=== PATIENT | male | born 1950 | race Caucasian/White ===

== ENCOUNTER → 2017-01-14 | Outpatient (CLI) | payer BC ==
[~2017-01-14] MED LIST: ASPI81TA28 PO; ATOR-26 PO; BACL1TAB PO; BUPR-79 PO; CHOL1000 PO; CYAN500T PO; DTR/5 PO; GLUC10007 PO; MULTCAP7 PO; NTRSL3 UT; PRT/20 PO; RANO500T PO; TYLOTC500 PO
[2017-01-14 17:12] LABS: ALT/SGPT 40 U/L (12-78); BLOOD UREA NITROGEN 19 mg/dl (7-18); BUN/CREATININE RATIO 19.9 (10-20); CALCIUM 9.1 mg/dl (8.5-10.1); CARBON DIOXIDE 27 mmol/L (21-32); CHLORIDE 106 mmol/L (98-107); CHOLESTEROL 118 mg/dl (0-200); CREATININE 0.98 mg/dl (0.60-1.40); GLUCOSE 98 mg/dl (70-99); POTASSIUM 4.4 mmol/L (3.5-5.1); SODIUM 144 mmol/L (136-145)
[2017-01-14 17:23] LABS: ALB/GLOB RATIO 1.3 (0.9-2); ALKALINE PHOSPHATASE 70 U/L (45-117); AST/SGOT 20 U/L (15-37); CHOLESTEROL/HDL RATIO 2.4; HDL CHOLESTEROL 49 mg/dl; LDL CHOLESTEROL CALCULATED 55 mg/dl; TRIGLYCERIDES 72 mg/dl (0-150); VERY LOW DENSITY LIPOPROT CALC 14 mg/dl
== END | disposition home or self-care (01) ==
LOC: C.LABBC 12:17
PROVIDERS: ATTEND Physician Assistant Medical
DX: Z00.00 Encounter for general adult medical examination without abnormal findings (principal); E78.5 Hyperlipidemia, unspecified; I25.10 Atherosclerotic heart disease of native coronary artery without angina pectoris; Z11.59 Encounter for screening for other viral diseases

== ENCOUNTER 2017-04-02 15:41 | Observation (INO) | payer BC ==
[~2017-04-02] VITALS: Ht 167.6 cm; Wt 62.6 kg
[2017-04-02 16:14] LABS: BASO % 0.4 %; BASO ABS # 0.03 K/uL (0-0.2); EOS % 1.9 %; EOS ABS # 0.13 K/uL (0-0.5); HEMATOCRIT 41.2 % (42-52); HEMOGLOBIN 14.2 g/dL (14.0-18.0); IG# 0.05 K/uL (0.00-0.02); LYMPH % 27.8 %; LYMPH ABS # 1.91 K/uL (1.2-3.4); MEAN CELL VOLUME 93.8 fL (80-100); MEAN CORPUSCULAR HEMOGLOBIN 32.3 pg (25-34); MEAN CORPUSCULAR HGB CONC 34.5 g/dl (32-36); MONO % 8.1 %; MONO ABS # 0.56 K/uL (0.11-0.59); NEUT % 61.1 %; PLATELET COUNT 216 K/uL (130-400); RED CELL DISTRIBUTION WIDTH CV 12.3 % (11.5-14.5); WHITE BLOOD COUNT 6.88 K/uL (4.8-10.8)
--- NOTE | 2017-04-02 16:17 | EMERGENCY ROOM VISIT NOTE ---
History First contact with patient: 15:57 Chief Complaint: CHEST PAIN Stated Complaint: CHEST PAIN History of Present Illness The patient is a 66 year old male who presents to the Emergency Room with complaints of central chest, burning chest pain which started around 2pm. He states his symptoms are similar to previous episodes in 2007 when he had an [place]. He took 2 nitro and did not experience significant relief. No associated SOB, nausea or diaphoresis, but does have some dizziness.. No radiation to arm, neck , back. No abdominal pain. Admits to poor diet - lots of junk food. Denies history of acid reflux. Called PCP because he was concerned that he has been requiring more nitro in the recent past, with increased frequency of chest pain. He otherwise denies fevers/chills, headaches, CP, palpitations, dyspnea, abdominal pain, lower extremity swelling or rashes. He is tolerating diet without nausea or vomiting, ambulating without exacerbating symptoms - no change in exercise tolerance, no orthopnea or PND. He is voiding and stooling appropriately. Review of Systems See HPI for pertinent positives and negatives. A total of ten systems were reviewed and were otherwise negative. Past Medical/Surgical History Medical Problems: (1) Anxiety State Nos (2) Cerebral Palsy Nos (3) Cervicalgia (4) Chest pain (5) Hearing Loss Nos (6) Hyperlipidemia Nec/Nos (7) Hypertension Nos (8) Old Myocardial Infarct (9) Postlaminect Synd-Cerv Surgical Problems: (1) Percutaneous Translum Coron Angioplasty Status Social History Smoking Status: Current Every Day Smoker Current/Historical Medications Scheduled Acetaminophen (Tylenol), 500 MG PO HS Aspirin (Aspirin Ec), 81 MG PO QAM Atorvastatin (Lipitor), 80 MG PO HS Baclofen (Lioresal), 10 MG PO HS Cholecalciferol (Vitamin D3), 1,000 UNITS PO QAM Coenzyme Q10 (Ubidecarenone) (Co Q10), 200 MG PO QAM Cyanocobalamin (Vitamin B-12), 1,000 MCG PO QAM Multiple Vitamins W/ Minerals (Vision Formula/Lutein), 1 TAB PO QAM Kpqxmygh-Nepttuavt-Oh Otic (Cortisporin Otic), 3 DROPS OTR QID Nutritional Supplements (Glucosamine Complex), 1 TAB PO QAM [place]-3 Fatty Acids (Fish Oil 1200 mg), 1,200 MG PO QAM Pantoprazole (Pantoprazole Sodium), 40 MG PO DAILYBB Ranolazine (Ranexa), 500 MG PO BID Scheduled PRN Calcium Carbonate (Tums), 1,000 MG PO QID PRN for Heartburn Ibuprofen (Advil), 200 MG PO DIRECTED PRN for Pain or Fever Ibuprofen-Diphenhydramine Citr (Motrin Pm), 1 DOSE PO HS PRN for Sleep Nitroglycerin (Nitrostat), 1 TAB SL DIRECTED PRN for Chest Pain Oxybutynin Chloride (Ditropan), 5 MG PO DAILY PRN for UNDECIDED Sildenafil Citrate (Viagra), 50 MG PO PRN PRN for SEXUAL ACTIVITY Physical Exam Vital Signs Date Time Temp Pulse Resp B/P (MAP) Pulse Ox O2 Delivery O2 Flow Rate FiO2 04/02/17 21:04 44 12 161/70 95 Room Air 04/02/17 21:02 46 04/02/17 19:30 49 15 137/76 96 Room Air 04/02/17 17:46 42 12 150/56 96 Room Air 04/02/17 17:21 47 20 139/76 95 Room Air 04/02/17 16:55 42 04/02/17 16:06 97 Room Air 04/02/17 16:06 36.6 53 20 131/57 97 Room Air 04/02/17 16:06 97 Room Air Physical Exam GENERAL: alert, well appearing, thin, sitting in bed, no acute distress, non- toxic HEAD: Normocephalic, atraumatic. EYES: PERRL, EOMI, normal sclera and conjunctiva OROPHARYNX: No exudate, no erythema. Lips, buccal mucosa, and tongue normal and mucous membranes are dry NECK: Supple, no nuchal rigidity, no adenopathy, non-tender LUNGS: Clear to auscultation. Normal chest wall mechanics, good air entry. No crepitations, crackles, or wheezes HEART: RRR, S1 and S2 normal, no murmurs appreciated CHEST: No reproducible tenderness. ABDOMEN: Soft, non-tender, normo-active bowel sounds, no masses, no rebound or guarding. BACK: Back is symmetrical on inspection, no deformities, no midline tenderness, no CVA tenderness. SKIN: Warm, pink, dry. No erythema, rashes, or bruising. EXTREMITIES: Grossly normal. Moving all 4 limbs. No pitting edema. Calves non tender. NEURO: Alert, Ox3. No focal deficits. Patient is deaf and communicates via [place] sign language PSYCH: Mood and affect appropriate. Medical Decision & Procedures ER Provider Diagnostic Interpretation: CHEST ONE VIEW PORTABLE HISTORY: Atypical chest pain COMPARISON: Chest 10/23/2015. FINDINGS: The lungs are clear. The heart is normal in size. No pleural effusions. No pneumothorax. Partially visualized cervical spinal fusion hardware is again noted. IMPRESSION: No acute process. Laboratory Results Test 04/02/17 16:03 Immature Granulocyte % (Auto) 0.7 % White Blood Count 6.88 K/uL (4.8-10.8) Red Blood Count 4.39 M/uL (4.7-6.1) Hemoglobin 14.2 g/dL (14.0-18.0) Hematocrit 41.2 % (42-52) Mean Corpuscular Volume 93.8 fL (80-100) Mean Corpuscular Hemoglobin 32.3 pg (25-34) Mean Corpuscular Hemoglobin Concent 34.5 g/dl (32-36) Platelet Count 216 K/uL (130-400) Mean Platelet Volume 10.0 fL (7.4-10.4) Neutrophils (%) (Auto) 61.1 % Lymphocytes (%) (Auto) 27.8 % Monocytes (%) (Auto) 8.1 % Eosinophils (%) (Auto) 1.9 % Basophils (%) (Auto) 0.4 % Neutrophils # (Auto) 4.20 K/uL (1.4-6.5) Lymphocytes # (Auto) 1.91 K/uL (1.2-3.4) Monocytes # (Auto) 0.56 K/uL (0.11-0.59) Eosinophils # (Auto) 0.13 K/uL (0-0.5) Basophils # (Auto) 0.03 K/uL (0-0.2) Immature Granulocyte # (Auto) 0.05 K/uL (0.00-0.02) Prothrombin Time 10.2 SECONDS (9.0-12.0) Prothromb Time International Ratio 1.0 (0.9-1.1) Procalcitonin < 0.05 ng/ml (0-0.5) Medications Administered Medications (Trade) Dose Ordered Sig/Luis Route Start Time Stop Time Status Last Admin Dose Admin Sodium Chloride 500 ml @ 125 mls/hr Q4H IV 04/02/17 16:30 04/02/17 22:48 DC 04/02/17 21:04 125 MLS/HR Famotidine 20 mg/ Dextrose 102 ml @ 200 mls/hr NOW STAT IV 04/02/17 17:39 04/02/17 18:09 DC 04/02/17 17:49 200 MLS/HR Calcium Carbonate (Tums Chew Tab) 1,000 mg NOW STAT PO 04/02/17 17:54 04/02/17 17:56 DC 04/02/17 18:13 1,000 MG ECG Per My Interpretation Indication: chest pain Rate (beats per minute): 44 Rhythm: sinus bradycardia Findings: no acute ischemic change, no ectopy Medical Decision Prior records/ancillary studies reviewed. Triage Nursing notes reviewed. Additional history obtained from patient. The patient's history was concerning for chest pain. Differential diagnosis: Etiologies such as cardiac ischemia, aortic dissection, pulmonary embolism, pneumonia, pneumothorax, musculoskeletal, infections, pericarditis, myocarditis , esophageal rupture, gastrointestinal, as well as others were entertained. Physical examination: As above. ER treatment provided: IVF NSS, IV famotidine, PO calcium carbonate On reassessment the patient felt ongoing chest burning. Diagnostic interpretation by me: The electrocardiogram was negative for pathologic change. The labs revealed CBC and BMP WNL, negative troponin Imaging studies: chest x-ray as above Initially, the patient was deemed safe to go home, and was keen for discharge. However, whilst in the emergency department, he began complaining of recurring chest burning. Repeat EKG showed unchanged morphology. Symptoms did not improve with IV famotidine and Tums. Given the patient's Heart Score of 4, indicating a 12-16.6% risk of major cardiac event, it was thought pertinent have the patient evaluated further. Consultation: A consultation was placed with the hospitalist. The case was discussed and diagnostics were reviewed. By the evaluation outlined above emergent etiologies such as acute cardiac ischemia, aortic dissection, pulmonary embolism, pneumonia, pneumothorax, infections, pericarditis, myocarditis, gastrointestinal, as well as others were deemed relatively unlikely. The patient and his sister were informed about the findings as listed above. All questions were answered and they were pleased with the treatment. The patient was evaluated for further management. Blood Pressure Screening Patient's blood pressure: Elevated blood pressure Impression Primary Impression: Chest pain Departure Information Dispostion Being Evaluated By Hospitalist Condition GOOD Prescriptions Pantoprazole (Pantoprazole Sodium) 40 Mg Tab 40 MG PO DAILYBB for 30 Days, TAB Prov: Beth Thomas M.D. 04/03/17 Calcium Carbonate (Tums) 500 Mg Chew 1000 MG PO QID Y for Heartburn for 30 Days Prov: Beth Thomas M.D. 04/03/17 Referrals Zaheer Claros M.D. (PCP) Patient Instructions My [facility] Resident Tracking Resident Involvement: Resident Care Provided Care Provided: Adult ED
[2017-04-02 16:33] LABS: BLOOD UREA NITROGEN 14 mg/dl (7-18); CALCIUM 8.8 mg/dl (8.5-10.1); CARBON DIOXIDE 26 mmol/L (21-32); CREATININE 0.88 mg/dl (0.60-1.40); GLUCOSE 101 mg/dl (70-99); POTASSIUM 4.1 mmol/L (3.5-5.1); SODIUM 140 mmol/L (136-145)
[2017-04-02] MEDS: SODIUM CHLORIDE 0.9% 500ML 500 ML IV SCH ×2 (16:39→21:04)
--- NOTE | 2017-04-02 17:02 | DIAGNOSTIC IMAGING REPORT ---
CHEST ONE VIEW PORTABLE HISTORY: Atypical chest pain COMPARISON: Chest 10/23/2015. FINDINGS: The lungs are clear. The heart is normal in size. No pleural effusions. No pneumothorax. Partially visualized cervical spinal fusion hardware is again noted. IMPRESSION: No acute process. Electronically signed by: Sanjay Frye M.D. 04/02/2017 5:01 PM Dictated Date/Time: 04/02/2017 4:58 PM
--- NOTE | 2017-04-02 17:06 | EMERGENCY ROOM VISIT NOTE ---
ED Visit Note First contact with patient: 15:57 Resident Physician Supervision Note: I was present with Dr. Broussard during the history and exam. I discussed the case with the resident and agree with the findings and plan as documented in the note. Documented By: Chente Mack
[2017-04-02] MEDS ORDERED: FAMOTIDINE IV INJ 20 MG in DEXTROSE 5% 100ML 100 ML IV STA (17:39)
[2017-04-02] MEDS ORDERED: MULT-839 PO (17:49)
[2017-04-02] MEDS ORDERED: NTRGSL4 SL (17:49)
[2017-04-02] MEDS ORDERED: VGR50 PO (17:49)
[2017-04-02] MEDS ORDERED: COEN1CAP10 PO (17:49)
[2017-04-02] MEDS ORDERED: IBUP-1050 PO (17:49)
[2017-04-02] MEDS ORDERED: OMEG5CAP PO (17:49)
[2017-04-02] MEDS ORDERED: METO50TA8 PO (17:49)
[2017-04-02] MEDS ORDERED: NUTRTAB48 PO (17:49)
[2017-04-02] MEDS ORDERED: [UNRECOGNIZED DRUG - CODE] PO (17:49)
[2017-04-02] MEDS ORDERED: NEOM1SUS21 OTR (17:49)
[2017-04-02] MEDS ORDERED: CALCIUM CARBONATE 500 MG CHEWABLE PO STA (17:54)
[2017-04-02] MEDS ORDERED: POLYETHYLENE (MIRALAX) 17 GM PACK PO PRN (21:15)
[2017-04-02] MEDS ORDERED: OXYBUTYNIN CHLORIDE 5 MG TAB PO PRN (21:15)
[2017-04-02] MEDS ORDERED: ACETAMINOPHEN 325 MG TAB PO PRN (21:15)
[2017-04-02] MEDS ORDERED: MAGNESIUM HYDROXIDE SUSP 30 ML UDC PO PRN (21:15)
[2017-04-02] MEDS ORDERED: IBUPROFEN 200 MG TAB PO PRN (21:15)
[2017-04-02] MEDS ORDERED: GI COCKTAIL PO PRN (21:15)
[2017-04-02] MEDS ORDERED: ALUMINUM/MAGNESIUM/SIMETH (MAALOX MAX) 30 ML UDC PO PRN (21:15)
[2017-04-02] MEDS ORDERED: ONDANSETRON INJ 2 MG/ML 2 ML VIAL IV PRN (21:15)
[2017-04-02] MEDS ORDERED: NITROGLYCERIN 0.4 MG SL PER TAB CHARGE SL PRN (21:15)
[2017-04-02] MEDS ORDERED: PANTOprazole SOD 40 MG TAB PO STA (21:21)
[2017-04-02] MEDS ORDERED: GI COCKTAIL PO STA (21:30)
[2017-04-02] MEDS ORDERED: CALCIUM CARBONATE 500 MG CHEWABLE PO PRN (21:30)
--- NOTE | 2017-04-02 21:46 | History and Physical ---
History & Physical Date & Time of Service: Apr 02, 2017 at 21:24 Chief Complaint: Chest Pain Primary Care Physician: Zaheer Claros M.D. History of Present Illness Source: patient, family (sister translates) The patient is a pleasant 66 year old male with a history of CAD, AL, HTN, GERD and chronic neck pain, who presents with with chest pain and dizziness. The patient is deaf and requires seafood specialist or sister to provide sign language to assist with communication. The patient notes that this afternoon around 1500 he was walking in his house and felt a pressure/burning in his chest. The pain did not radiate to his neck , arms, or back. The pain patient took 2 Nitro tabs over a period of 45 minutes and the pain dissipated. The patient also had associated lightheadedness. He call his PCP who called an ambulance to his house. He denies shortness of breath, cough, or wheezing. He has not had orthopnea or leg swelling. He states that it is usual for him to get a similar chest discomfort approximately twice per month and he usually takes Nitro for this. However, on this occasion, the symptoms were associated with lightheadedness which was concerning to him. 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 Since then he follows with the [facility] cardiology group. Currently, states only minimal chest discomfort centrally, markedly improved from arrival in the ED. Past Medical/Surgical History Medical Problems: (1) Anxiety State Nos Status: Chronic (2) Cerebral Palsy Nos Status: Chronic (3) Cervicalgia Status: Chronic (4) Hearing Loss Nos Status: Chronic (5) Hyperlipidemia Nec/Nos Status: Chronic (6) Hypertension Nos Status: Chronic (7) Old Myocardial Infarct Status: Chronic (8) Postlaminect Synd-Cerv Status: Chronic Surgical Problems: (1) Percutaneous Translum Coron Angioplasty Status Status: Resolved Family History CAD HTN Leukemia Social History Smoking Status: Current Every Day Smoker (10 cigarettes) Smokeless Tobacco Use: No Alcohol Use: none Drug Use: none Marital Status: single Housing status: lives alone Immunizations History of Influenza Vaccine: No History of Tetanus Vaccine?: Yes History of Pneumococcal: No History of Hepatitis B Vaccine: No Multi-Drug Resistant Organisms History of MDRO: No Allergies Coded Allergies: No Known Allergies (Verified , 04/02/17) Home Medications Scheduled Acetaminophen (Tylenol), 500 MG PO HS Aspirin (Aspirin Ec), 81 MG PO QAM Atorvastatin (Lipitor), 80 MG PO HS Baclofen (Lioresal), 10 MG PO HS Cholecalciferol (Vitamin D3), 1,000 UNITS PO QAM Coenzyme Q10 (Ubidecarenone) (Co Q10), 200 MG PO QAM Cyanocobalamin (Vitamin B-12), 1,000 MCG PO QAM Metoprolol Succ (Toprol Xl) (Toprol-Xl), 25 MG PO QAM Multiple Vitamins W/ Minerals (Vision Formula/Lutein), 1 TAB PO QAM Guiqhrym-Gdiywziwq-Ud Otic (Cortisporin Otic), 3 DROPS OTR QID Nutritional Supplements (Glucosamine Complex), 1 TAB PO QAM [place]-3 Fatty Acids (Fish Oil 1200 mg), 1,200 MG PO QAM Pantoprazole (Protonix), 20 MG PO DAILYBB Ranolazine (Ranexa), 500 MG PO BID Scheduled PRN Ibuprofen (Advil), 200 MG PO DIRECTED PRN for Pain or Fever Ibuprofen-Diphenhydramine Citr (Motrin Pm), 1 DOSE PO HS PRN for Sleep Nitroglycerin (Nitrostat), 1 TAB SL DIRECTED PRN for Chest Pain Oxybutynin Chloride (Ditropan), 5 MG PO DAILY PRN for UNDECIDED Sildenafil Citrate (Viagra), 50 MG PO PRN PRN for SEXUAL ACTIVITY Review of Systems A 10 point review of systems was negative unless stated above. Physical Exam Vital Signs Date Time Temp Pulse Resp B/P (MAP) Pulse Ox O2 Delivery O2 Flow Rate FiO2 04/02/17 21:04 44 12 161/70 95 Room Air 04/02/17 21:02 46 04/02/17 19:30 49 15 137/76 96 Room Air 04/02/17 17:46 42 12 150/56 96 Room Air 04/02/17 17:21 47 20 139/76 95 Room Air 04/02/17 16:55 42 04/02/17 16:06 97 Room Air 04/02/17 16:06 36.6 53 20 131/57 97 Room Air 04/02/17 16:06 97 Room Air General Appearance: WD/WN, no apparent distress Head: normocephalic, atraumatic Eyes: normal inspection, EOMI ENT: normal ENT inspection, hearing grossly normal, pharynx normal Neck: supple, no adenopathy, no JVD, + pertinent finding (posterior scar from previous C-spine surgery) Respiratory/Chest: + crackles (Crackles R base) Cardiovascular: regular rate, rhythm, no gallop, no murmur, + bradycardia Abdomen/GI: normal bowel sounds, non tender, soft Back: no CVA tenderness, no muscle spasm Extremities/Musculoskelatal: no calf tenderness, no pedal edema Neurologic/Psych: alert, normal mood/affect Skin: normal color, warm/dry, no rash Lymphatic: no adenopathy Diagnostics Laboratory Results Results Past 24 Hours Test 04/02/17 16:03 Range/Units White Blood Count 6.88 4.8-10.8 K/uL Red Blood Count 4.39 4.7-6.1 M/uL Hemoglobin 14.2 14.0-18.0 g/dL Hematocrit 41.2 42-52 % Mean Corpuscular Volume 93.8 80-100 fL Mean Corpuscular Hemoglobin 32.3 25-34 pg Mean Corpuscular Hemoglobin Concent 34.5 32-36 g/dl Platelet Count 216 130-400 K/uL Mean Platelet Volume 10.0 7.4-10.4 fL Neutrophils (%) (Auto) 61.1 % Lymphocytes (%) (Auto) 27.8 % Monocytes (%) (Auto) 8.1 % Eosinophils (%) (Auto) 1.9 % Basophils (%) (Auto) 0.4 % Neutrophils # (Auto) 4.20 1.4-6.5 K/uL Lymphocytes # (Auto) 1.91 1.2-3.4 K/uL Monocytes # (Auto) 0.56 0.11-0.59 K/uL Eosinophils # (Auto) 0.13 0-0.5 K/uL Basophils # (Auto) 0.03 0-0.2 K/uL RDW Standard Deviation 42.0 36.4-46.3 fL RDW Coefficient of Variation 12.3 11.5-14.5 % Immature Granulocyte % (Auto) 0.7 % Immature Granulocyte # (Auto) 0.05 0.00-0.02 K/uL Sodium Level 140 136-145 mmol/L Potassium Level 4.1 3.5-5.1 mmol/L Chloride Level 107 98-107 mmol/L Carbon Dioxide Level 26 21-32 mmol/L Anion Gap 7.0 3-11 mmol/L Blood Urea Nitrogen 14 7-18 mg/dl Creatinine 0.88 0.60-1.40 mg/dl Est Creatinine Clear Calc Drug Dose 76.5 ml/min Estimated GFR () 105.2 Estimated GFR (Non- 90.8 BUN/Creatinine Ratio 16.4 10-20 Random Glucose 101 70-99 mg/dl Calcium Level 8.8 8.5-10.1 mg/dl Troponin I < 0.015 0-0.045 ng/ml Diagnostic Radiology CHEST ONE VIEW PORTABLE HISTORY: Atypical chest pain COMPARISON: Chest 10/23/2015. FINDINGS: The lungs are clear. The heart is normal in size. No pleural effusions. No pneumothorax. Partially visualized cervical spinal fusion hardware is again noted. IMPRESSION: No acute process. EKG Marked sinus bradycardia Low voltage QRS Inferior infarct , age undetermined Cannot rule out Anterior infarct , age undetermined Abnormal ECG When compared with ECG of 23-OCT-2015 10:40, Premature ventricular complexes are no longer Present Nonspecific T wave abnormality, worse in Inferior leads Confirmed by ADRIEN LIRA ([id number]) on 04/02/2017 5:11:15 PM Impression Assessment and Plan 66 year old male with chest burning/pressure on background history of Right inferior wall AL with stenting. EKG in the ED was normal. Troponin initially was negative. The plan for the patient is as follows: Chest Pain on Background of known Ischemic Heart Disease Bradycardic on EKG; check qAM and with chest pain - Nitro PRN for chest pain - Serial troponin monitoring q6 hr - Telemetry monitoring - Consult cardiology - Continue ASA, Ranexa, Atorvastatin - Metoprolol held due to significant bradycardia - Given burning quality, will also consider GERD as etiology and treat according - Most recent stress echo from Nov 2015 was negative for ischemia up to 58% max predicted HR; EF 55-60. - Per most recent Cardiology outpatient note (Dalton Wolf, Feb 2017) patient has had a more recent stress test in Dec 2016 but I cannot find these in the EMR) day team to find these records. Note states that this stress echo was normal. GERD - ?Possibly confounder for chest pain? - Continue Pantoprazole daily; increased to 40 daily - GI cocktail BID added PRN Abnormal Lung Auscultation at Right Base - Consider CAP - Patient not hypoxic, febrile, SOB or coughing. No WBC - At this point, not urgent to start treatment; will start with checking pro- calcitonin; treat if positive - If negative, likely atelectasis, recommend incentive spirometry HTN - Continue Metoprolol - Bradycardia appears Chronic EKG finding - Will continue and monitor for symptoms Chronic Neck Pain - Continue Baclofen - Continue Tylenol PRN - Continue Ibuprofen PRN; monitor renal function daily; ensure good hydration status and intake with meals DVT Prophylaxis - SCD Knee, CHARLENE Hose - Lovenox 40 mg s.c. daily Code Status - Level I Full Code Disposition - Telemetry - OT and PT evaluations - Sister is Cherelle Lunsford ( ); please contact with updates and if translation required 66 y/o M Hx HTN, HPL, CAD - AL 2007. Presents with recurrent burning, central CP lasting a few hours - did not immediately respond to NTG or antacids. Pt was markedly bradycardic on arrival to the ER - An EKG did not otherwise support ischemia OE Hard of hearing AAO x 3 S1,2 R stephanie CTAB NT, ND No CCE P: Assigned to telemetry for R/O of AL We will hold his B arcenio and consult cardiology due to his HR which theoretically can be the cause of his CP - cont NTG PRN and Ranexa as prescribed - it is noted that he is chroncally bradycardic but normally rests in the low 50 rather than at 40 Cont Atorvastatin Level of Care Telemetry Resuscitation Status FULL RESUSCITATION VTE Prophylaxis VTE Risk Assessment Done? Y/N: Yes Risk Level: Moderate Given or contraindicated: Enoxaparin (Lovenox)SQ
[2017-04-02 23:00] VITALS: BP 165/80; PULSE 42; TEMP 36.6; O2SAT 97; Ht 167.6 cm; Wt 62.6 kg
[2017-04-02] MEDS ORDERED: ALUMINUM/MAGNESIUM SUSP 72 ML, LIDOCAINE HCL 2% VISCOUS SOLN 24 ML, BARCODE IDENTIFIER ... PO PRN ×2 (23:00)
[2017-04-02] MEDS ORDERED: ALUMINUM/MAGNESIUM SUSP 18 ML, LIDOCAINE HCL 2% VISCOUS SOLN 6 ML, BARCODE IDENTIFIER 1 EA PO ONE ×2 (23:00)
[2017-04-03 03:21] LABS: HEMATOCRIT 39.3 % (42-52); HEMOGLOBIN 13.8 g/dL (14.0-18.0); MEAN CELL VOLUME 93.6 fL (80-100); MEAN CORPUSCULAR HEMOGLOBIN 32.9 pg (25-34); MEAN CORPUSCULAR HGB CONC 35.1 g/dl (32-36); MEAN PLATELET VOLUME 10.2 fL (7.4-10.4); PLATELET COUNT 209 K/uL (130-400); RED CELL DISTRIBUTION WIDTH CV 12.2 % (11.5-14.5); RED CELL DISTRIBUTION WIDTH SD 41.4 fL (36.4-46.3); WHITE BLOOD COUNT 7.07 K/uL (4.8-10.8)
[2017-04-03 03:38] LABS: BLOOD UREA NITROGEN 13 mg/dl (7-18); CALCIUM 8.5 mg/dl (8.5-10.1); CARBON DIOXIDE 28 mmol/L (21-32); GLUCOSE 94 mg/dl (70-99); POTASSIUM 3.9 mmol/L (3.5-5.1); SODIUM 140 mmol/L (136-145)
[2017-04-03 04:05] VITALS: BP 109/40; PULSE 61; TEMP 36.5; O2SAT 95
[2017-04-03] MEDS ORDERED: PANTOprazole SOD 40 MG TAB PO SCH (06:30)
[2017-04-03 07:02] VITALS: BP 127/52; PULSE 43; TEMP 36.9; O2SAT 96
[2017-04-03] MEDS: NEOMYCIN/POLYMYX/HYDROCORT OT SUSP 10 ML BTL OTR SCH ×3 (08:39→16:59)
[2017-04-03] MEDS: ENOXAPARIN 40 MG/0.4 ML SYR SC SCH ×2 (08:43→08:47)
[2017-04-03] MEDS ORDERED: OMEGA-3 (PURIFIED FISH OIL) 1 GM CAP PO SCH (09:00)
[2017-04-03] MEDS ORDERED: FAMOTIDINE 20 MG TAB PO SCH (09:00)
[2017-04-03] MEDS ORDERED: ASPIRIN 81 MG ECTAB PO SCH (09:00)
[2017-04-03] MEDS ORDERED: NUTRITIONAL SUPPLEMENTS PO SCH (09:00)
[2017-04-03] MEDS ORDERED: CYANOCOBALAMIN 500 MCG TAB (VIT B-12) PO SCH (09:00)
[2017-04-03] MEDS ORDERED: METOPROLOL SUCC 25MG EXT REL TAB PO SCH (09:00)
[2017-04-03] MEDS ORDERED: NON-FORMULARY MEDICATION (Coenzyme Q10 (Ubidecarenone) (Co Q10) 200 MG) PO SCH (09:00)
[2017-04-03] MEDS ORDERED: CEROVITE ADV FORMULA TAB PO SCH (09:00)
[2017-04-03] MEDS ORDERED: RANOLAZINE 500 MG ER TAB PO SCH (09:00)
[2017-04-03 11:57] VITALS: BP 111/62; PULSE 43; TEMP 36.8; O2SAT 92
[2017-04-03] MEDS ORDERED: CALCIUM CARBONATE 500 MG CHEWABLE PO PRN (13:15)
[2017-04-03] MEDS ORDERED: DICLOFENAC SOD 1% GEL 100 GM TUBE EXT PRN (13:15)
[2017-04-03 15:24] VITALS: BP 151/90; PULSE 49; TEMP 36.2; O2SAT 96
[2017-04-03] MEDS ORDERED: PRT40 PO (16:42)
[2017-04-03] MEDS ORDERED: TUMS PO (16:42)
--- NOTE | 2017-04-03 16:50 | Discharge Instructions ---
Discharge Instructions Date of Service Apr 03, 2017. Admission Reason for Admission: Chest Pain Discharge Discharge Diagnosis / Problem: Chest Pain Discharge Goals Goal(s): Decrease discomfort, Improve disease control, Learn about illness, Diagnostic testing Activity Recommendations Activity Limitations: resume your previous activity . Instructions / Follow-Up Instructions / Follow-Up You were admitted for chest pain. Anginal chest pain can present as mid sternal pain that radiates to your jaw or arms, is usually associated with physical exertion, sweating. Take your nitro pill when you feel this. Looking at your blood work and assessing you here, there is no evidence of damage to your heart at this time, which may indicate that your pain may not be related to your heart but to your reflux disease. This seems to be the case especially since TUMS helped relieve some of your symptoms. I have written a prescription for TUMS only to remind you of this helpful medication, but it is available with out a prescription. We have also increased your acid reducing medication, Protonix (pantoprazole) from 20mg to 40mg daily. This should help with your reflux symptoms. Lastly, our weather clerk believes that since your blood pressure is under control and your heart rate is on the slower side of normal, that it would be best to STOP your Toprol (Metoprolol) medication -- UNTIL you are seen by [facility] at your next appointment. Please call the office to schedule an appointment with Dalton Wolf at [facility] in the next 2-3 weeks. Thank you for allowing us to participate in your care. Current Hospital Diet Patient's [facility] diet: [facility] ([facility] Healthy) Discharge Diet Recommended Diet: [facility] Diet (Heart Healthy) Pending Studies Studies pending at discharge: no Laboratory Results Lipid Panel Test 01/14/17 12:27 Range/Units Triglycerides Level 72 0-150 mg/dl Cholesterol Level 118 0-200 mg/dl HDL Cholesterol 49 mg/dl Cholesterol/HDL Ratio 2.4 LDL Cholesterol, Calculated 55 mg/dl Medical Emergencies . Who to Call and When: Medical Emergencies: If at any time you feel your situation is an emergency, please call 911 immediately. . Non-Emergent Contact Non-Emergency issues call your: Primary Care Provider, Owner/Operator Call Non-Emergent contact if: your pain is not controlled, your pain is worsening, your pain is unusual for you, your pain is concerning you . . "Provider Documentation" section prepared by Beth Thomas. . VTE Core Measure Inpt VTE Proph given/why not?: Enoxaparin (Lovenox)SQ
[2017-04-03 16:54] VITALS: BP 151/90; PULSE 49; TEMP 36.2; O2SAT 96
--- NOTE | 2017-04-03 17:58 | Discharge Summary ---
Discharge Summary Date of Service Apr 03, 2017. Discharge Summary Admission Date: Apr 02, 2017 at 21:15 Discharge Date: Apr 03, 2017 Discharge Disposition: Home Principal Diagnosis: Chest pain Problems/Secondary Diagnoses: (1) Anxiety State Nos Status: Chronic (2) Cerebral Palsy Nos Status: Chronic (3) Cervicalgia Status: Chronic (4) Hearing Loss Nos Status: Chronic (5) Hyperlipidemia Nec/Nos Status: Chronic (6) Hypertension Nos Status: Chronic (7) Old Myocardial Infarct Status: Chronic (8) Postlaminect Synd-Cerv Status: Chronic Immunizations: Have You Had Influenza Vaccine: No History of Tetanus Vaccine?: Yes History of Pneumococcal: No History of Hepatitis B Vaccine: No Consultations: Cardiology Medication Reconciliation New Medications: Calcium Carbonate (Tums) 500 Mg Chew 1000 MG PO QID PRN for Heartburn for 30 Days Pantoprazole (Pantoprazole Sodium) 40 Mg Tab 40 MG PO DAILYBB for 30 Days, TAB Continued Medications: Acetaminophen (Tylenol) 500 Mg Tab 500 MG PO HS, TAB Aspirin (Aspirin Ec) 81 Mg Tab 81 MG PO QAM Atorvastatin (Lipitor) 80 Mg Tab 80 MG PO HS, 0 Refills Baclofen (Lioresal) 10 Mg Tab 10 MG PO HS, 0 Refills Cholecalciferol (Vitamin D3) 1,000 Unit Tab 1000 UNITS PO QAM, TAB 3 Refills Coenzyme Q10 (Ubidecarenone) (Co Q10) 200 Mg Cap 200 MG PO QAM Cyanocobalamin (Vitamin B-12) 500 Mcg Tab 1000 MCG PO QAM, TAB Ibuprofen (Advil) 200 Mg Tab 200 MG PO DIRECTED PRN for Pain or Fever, TAB Ibuprofen-Diphenhydramine Citr (Motrin Pm) 1 Tab Tab 1 DOSE PO HS PRN for Sleep Multiple Vitamins W/ Minerals (Vision Formula/Lutein) 1 Tab Tab 1 TAB PO QAM Sjynkafr-Sdjpztclj-Rf Otic (Cortisporin Otic) 1 Madison Madison 3 DROPS OTR QID for 5 Days, #10 ML Nitroglycerin (Nitrostat) 0.4 Mg/1 Tab Subl 1 TAB SL DIRECTED PRN for Chest Pain 1 TAB UNDER TONGUE EVERY 5 MINUTES UP TO 3 DOSES. Nutritional Supplements (Glucosamine Complex) 1 Tab Tab 1 TAB PO QAM [place]-3 Fatty Acids (Fish Oil 1200 mg) 1 Cap Cap 1200 MG PO QAM Oxybutynin Chloride (Ditropan) 5 Mg Tab 5 MG PO DAILY PRN for UNDECIDED, TAB Ranolazine (Ranexa) 500 Mg Tab 500 MG PO BID for 30 Days, #60 TAB 3 Refills Sildenafil Citrate (Viagra) 50 Mg Tab 50 MG PO PRN PRN for SEXUAL ACTIVITY, TAB Discontinued Medications: Metoprolol Succ (Toprol Xl) (Toprol-Xl) 50 Mg Tabcr 25 MG PO QAM, #30 TAB Pantoprazole (Protonix) 20 Mg Tab 20 MG PO DAILYBB, #30 TAB Discharge Exam Spoke initially with patient with no japanese interpreter and him reading lips, but then later discussed with his sister as japanese interpreter more in depth. Pt states he is feeling better, although has persistent burning pain in his mid chest, and points to his right sided chest. It is made better with Tums. Pt is eating well , toileting well, but did not get much sleep last night. He would like to get home to his dog. Pt otherwise denies headaches, SOB, abdominal pain, diarrhea, constipation, vomiting, or lower extremity pain. ROS See HPI for pertinent positives and negatives. Physical Exam Notes: GENERAL: Awake, alert, well-appearing, in no distress. Deaf. HENT: Normocephalic, atraumatic. EYES: Normal conjunctiva. Sclera non-icteric. NECK: Supple. Old 5cm vertical scar on posterior neck post op. No JVD. RESPIRATORY: Clear to auscultation. CARDIAC: Regular rate, normal rhythm. Extremities warm and well perfused. Pulses equal. ABDOMEN: Soft, non-distended. No tenderness to palpation. No rebound or guarding. No masses. RECTAL: Deferred. MUSCULOSKELETAL: Chest examination reveals mild tenderness on right sided anterior chest. The back is symmetrical on inspection without obvious abnormality. There is no CVA tenderness to palpation. No joint edema. LOWER EXTREMITIES: Calves are equal size bilaterally and non-tender. No edema. No discoloration. SKIN: No rash or jaundice noted. Hospital Course 66 year old male with chest burning/pressure on background history of Right inferior wall [place] with stenting. Chest Pain on Background of known Ischemic Heart Disease - EKG in the ED was normal. Troponin x 4 was negative throughout stay. - Last seen in [facility] Cards office (Feb 2017) recent stress test in Dec 2016 but I cannot find these in the EMR) day team to find these records. Note states that this stress echo was normal. - Continue Nitro PRN for chest pain - Telemetry monitoring - sinus bradycardia. - Seen by Cardiology while in hospital (Dr. Orozco) recommends: pt is safe for discharge from a cardiac standpoint, can DC metoprolol since bradycardic until follow up with Dalton Wolf in [facility]iology office in 2-3 weeks. - Continue ASA, Ranexa, Atorvastatin - Metoprolol held due to significant bradycardia GERD - chest pain resolved with TUMS overnight - likely contributory - Increase Pantoprazole to 40mg daily. Add TUMS 1000mg qid PRN for heartburn. HTN - Bradycardia appears Chronic EKG finding - DC Metoprolol as above - reassess at next appointment with [facility] Cardiology in 2-3 weeks. Chronic Neck Pain - Continue Baclofen - Continue Tylenol PRN - Continue Ibuprofen PRN; monitor renal function daily; ensure good hydration status and intake with meals DVT Prophylaxis - SCD Knee, CHARLENE Hose - Lovenox 40 mg s.c. daily Code Status - Level I Full Code Thank you for allowing us to participate in Mr. Salmeron's care. Total Time Spent: Greater than 30 minutes This includes examination of the patient, discharge planning, medication reconciliation, and communication with other providers. Discharge Instructions Please refer to the electronic Patient Visit Report (Discharge Instructions) for additional information. Follow-Up Dalton COX at [facility]iology in 2-3 weeks. Pt will call office to schedule. Additional Copies To Zaheer Claros M.D.; Dalton Wolf.,P.A.
[2017-04-03] MEDS ORDERED: ACETAMINOPHEN 500 MG TAB PO SCH (21:00)
[2017-04-03] MEDS ORDERED: BACLOFEN 10 MG TAB PO SCH (21:00)
[2017-04-03] MEDS ORDERED: ATORVASTATIN 40 MG TAB PO SCH (21:00)
--- NOTE | 2017-04-04 22:50 | CARDIOLOGY CONSULTATION ---
DATE OF CONSULTATION: 04/03/2017 CONSULTATION REQUESTED BY: Rodrick Gaviria MD. REASON FOR CONSULTATION: Chest pain. HISTORY OF PRESENT ILLNESS: Mr. Salmeron is a 66-year-old man known to our cardiology practice with a history of coronary artery disease status post acute inferior wall [place] in 2007, treated with bare metal stents to his RCA, who was admitted overnight after episode of chest pain with associated dizziness. The patient was last seen in cardiology clinic back in February of 2017. At that time he was doing relatively well. Did endorse some dry mouth and for which his Ranexa was decreased from 500 mg twice daily to 500 mg once daily. With that he states he did have some improvement in his dry mouth symptoms. Has noticed more angina since making the change. On the day of admission, he was out walking when developed some episodes of left-sided chest pain similar to prior angina with some mild associated dizziness that lasted for approximately half an hour. The patient thought he was having a heart attack and as a result he presented to the ED. There his EKG was unremarkable and troponins have been negative x3. He has had no recurrent chest pain management and feels well this morning. PAST MEDICAL HISTORY: Coronary artery disease status post acute inferior [place] in 2007, treated with 2 bare metal stents to his mid RCA. Otherwise had mild to moderate nonobstructive disease in his LAD and circumflex system. Last stress test in December of 2016 was negative for ischemia. Other medical problems; dyslipidemia, sinus bradycardia, deafness, nicotine dependence and psoriasis. PAST SURGICAL HISTORY: Status post inguinal hernia repair, cervical laminectomy. FAMILY HISTORY: No family history of coronary artery disease or sudden cardiac . SOCIAL HISTORY: He is a current everyday smoker. Denies any heavy alcohol use. He is a chronic smoker. HOME MEDICATIONS: Include Toprol-XL 25 mg daily, sublingual nitroglycerin, Ranexa 500 mg daily, atorvastatin 800 mg at bedtime, Viagra p.r.n., Coenzyme Q10, fish oil, Protonix 20 mg daily, vitamin B12, baclofen, Centrum, Motrin, aspirin 81 mg, oxybutynin, glucosamine and vitamin D3. ALLERGIES: No known drug allergies. REVIEW OF SYSTEMS: Twelve point review of systems completed and otherwise negative unless stated in the HPI. PHYSICAL EXAMINATION: VITAL SIGNS: Temperature 36.2, pulse 49, blood pressure 151/90. He is satting 96% on room air. GENERAL: The patient appeared comfortable in no acute distress. HEENT: Sclerae are anicteric. Oropharynx is clear. 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 LUNGS: Clear to auscultation bilaterally. HEART: Regular rate and rhythm with no murmurs or gallops. He was bradycardic. ABDOMEN: Soft, nontender, nondistended with positive bowel sounds. EXTREMITIES: Warm with no lower extremity edema. SKIN: Shows no rashes or lesions. NEUROLOGIC: Nonfocal. LABORATORY DATA: Reviewed. Troponins were negative x3. Chest x-ray showed no acute cardiopulmonary process. EKGs reviewed. Initial EKG showed sinus bradycardia with inferior infarct, nonspecific ST abnormality, but not significantly changed from prior. IMPRESSION AND PLAN: 1. Stable angina. 2. Coronary artery disease status post prior inferior myocardial infarction with prior PCI with bare metal stents. 3. Recent negative/low- risk stress test. 4. Dyslipidemia. 5. Ongoing tobacco abuse. Mr. Salmeron was admitted with an episode of chest pain and mild associated dizziness. His episode was notable for being more severe and slightly longer than his typical anginal symptoms. There was concern for ACS on admission, but cardiac enzymes and EKG have been unremarkable. He has had no recurrent chest pain and has had no significant arrhythmias on telemetry other than longstanding sinus bradycardia. At this time, suspicion for ACS is bit low. Discussed with the patient option of potentially increasing his Ranexa back to 500 mg b.i.d. but the patient states not interested in that at this time due to dry mouth symptoms. In the setting of his bradycardia as low as 30s on admission and dizziness, feel reasonable to hold his metoprolol on discharge. I do not feel any additional cardiac testing that was needed at this time. The patient can be discharged to home with plan for outpatient cardiology followup in 2-3 weeks.
== END 2017-04-03 18:17 | disposition home or self-care (01) ==
LOC: EDBD 15:41 → C.EDA 15:42 → C.MED 21:15 → EDBEDREQ 21:21 → ENRESERV 21:35
PROVIDERS: ADMIT Student in an Organized Health Care Education/Training Program; ATTEND Hospitalist
DX: R07.9 Chest pain, unspecified (principal); F41.9 Anxiety disorder, unspecified; G80.9 Cerebral palsy, unspecified; H91.90 Unspecified hearing loss, unspecified ear; E78.5 Hyperlipidemia, unspecified; I10 Essential (primary) hypertension; I25.2 Old myocardial infarction; K21.9 Gastro-esophageal reflux disease without esophagitis; I25.10 Atherosclerotic heart disease of native coronary artery without angina pectoris; Z79.82 Long term (current) use of aspirin; Z79.899 Other long term (current) drug therapy; Z95.5 Presence of coronary angioplasty implant and graft; Z98.890 Other specified postprocedural states; F17.200 Nicotine dependence, unspecified, uncomplicated; Z82.49 Family history of ischemic heart disease and other diseases of the circulatory system; Z80.6 Family history of leukemia

== ENCOUNTER 2022-12-14 15:44 | Observation (INO) ==
--- NOTE | 2022-12-14 16:30 | ED Triage Note ---
Date of Service December 14, 2022 History of Present Illness This patient was briefly evaluated while in triage. An abbreviated physical exam was performed. This patient is a 72-year-old Male who presents to the ED for evaluation of injuries from a fall and pain in his neck. The patient had a fall this past Wednesday, and was seen in the emergency department for his pain. He was given lidocaine patches and codeine without relief of the pain. He was referred to the emergency department. When asked if the patient tried to call pain management, he stated that he did (spoke with [facility], and was referred to the emergency department). Patient denies any pain radiating into the arms or upper back region. The patient has used ice without relief. The patient reports that he ran out of his pain medicines yesterday. The patient reports that he does not receive any prescriptions other than what he received from his last ED visit. The patient rates his pain a 10 out of 10. Physical Exam CONSTITUTIONAL: Healthy and well nourished. Patient does not appear in any acute distress. CERVICAL: Generalized tenderness to palpation without obvious rigidity. MUSCULOSKELETAL: No tenderness to palpation through the trapezius muscles. INTEGUMENTARY: No rash or other significant dermatologic conditions noted. HEMATOLOGIC: No ecchymosis or petechiae. PSYCHIATRIC: Positive affect. NEUROLOGIC: Upper extremities are sensory intact. Initial orders for labs and / or imaging were placed and patient was placed in the waiting area until a bed is available. Please see further documentation for the full ED course.
[2022-12-14] MEDS ORDERED: MoRPHine SULFATE 4 MG/ML 1 ML CARP\\VIAL IV STA (19:07)
[2022-12-14] MEDS ORDERED: ONDANSETRON INJ 2 MG/ML 2 ML VIAL IV STA (19:07)
[2022-12-14] MEDS ORDERED: MoRPHine SULFATE 4 MG/ML 1 ML CARP\\VIAL IV PRN (19:07)
--- NOTE | 2022-12-14 19:19 | Emergency Department Note ---
Impression & Plan Weakness, Frequent falls, Neck pain on left side, Cerebral palsy ED Provider Note NAME: KYLE TRIANA AGE: 72 SEX: M : 1950 ARRIVES VIA: Walk-In INFORMANT: [Patient][roommate] ED PROVIDER(S): [Michelet Dennis MD] CHIEF COMPLAINT: Fall, left neck pain HISTORY OF PRESENT ILLNESS: The patient is a 72-year-old male who has some form of cerebral palsy. He falls quite frequently. He has been falling lately and after one of his falls, developed some left lateral neck pain. He has a history of neck issues, he has had a fusion to the neck. His neck pain is worse though since falling. The patient was in our ED around 6 days ago, he was given some pain medication and lidocaine patches. Things are persisting. He states that pain is a 10/10. He presents back for evaluation. There has been no cough or congestion or fever. No shortness of breath. The patient's roommate is at the bedside. She is concerned for his safety as he is falling a lot lately. I talked to the patient about this, he believes he may need rehab placement/admission as he is not safe in his home environment. Of note, the translation line was used as the patient requires the use of sign language. PMHx/PSHx/Social Hx: See Below PHYSICAL EXAM: GENERAL: Patient is in no acute distress. HEENT: No acute trauma, normocephalic atraumatic, mucous membranes moist, no nasal congestion. NECK: No stridor, no adenopathy, tender to the left lateral trapezius area and left lateral neck musculature, no obvious bony step-off. LUNGS: Clear to auscultation bilaterally, no wheeze, no rhonchi, breath sounds equal. HEART: Without murmurs gallops or rubs, regular rate and rhythm. ABDOMEN: Soft, nontender, no peritonitis. EXTREMITIES: No cyanosis, full range of motion of all the joints without pain or difficulty. NEUROLOGIC: Oriented x 3. SKIN: No jaundice, no diaphoresis. DIFFERENTIAL DIAGNOSIS: Cervical fracture, cervical strain, hematoma, intracranial bleeding, ambulatory dysfunction, anemia, electrolyte imbalance, among others. EMERGENCY DEPARTMENT PROCEDURES: MEDICAL DECISION MAKING: There is no leukocytosis or concerning anemia. There is a normal platelet count. No renal failure or significant electrolyte abnormality. No concerning liver enzyme elevation. Chest x-ray does not show mediastinal widening, pneumonia or pneumothorax. Brain CT does not show any acute bleeding or mass effect. Cervical spine CT shows his prior fusion, no fracture or bony malalignment. On exam, the patient was tender along the left lateral neck musculature and left trapezius. The patient presents with frequent falling, weakness. This is a second visit in a week. I spoke with the patient as well as his roommate. At this point, the patient was not felt safe at home. He likely requires rehab/placement. The patient was given IV morphine for pain, he received IV Zofran for nausea. I did speak with the porter sample case, the on-call hospitalist was consulted. With regard to the neck discomfort, this appears musculoskeletal, likely a result from one of his falls. Prior/Outside records/notes reviewed: Recent physical therapy note. Imaging/x-ray results per my interpretation: Chest x-ray does not show med iastinal widening, pneumonia or pneumothorax. Chronic Medical/Social conditions affecting care: Patient is deaf and requires the use of sign language. Care/Management discussed with: Case management, the on-call hospitalistDr. Montemayor. 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 Allen Hyperlipidemia Hypertension Myofascial pain Postlaminectomy syndrome Cervical Psoriasis Reactive depression Right knee pain Stomach ulcer Surgical History H/O cardiac catheterization H/O inguinal hernia repair H/O laminectomy History of bunionectomy of right great toe History of carpal tunnel surgery of left wrist History of colonoscopy with polypectomy History of heart artery stent History of tooth extraction History of wisdom tooth extraction Family History Brother Colorectal cancer Mother Hypertension Other Leukemia Denies family history of Ovarian cancer Prostate cancer Diabetes Hearing loss Coronary heart disease No family history of adverse response to anesthesia No family history of bleeding disorder Heart disease Allergies Myocardial infarction Breast cancer Cancer Stroke Asthma Social History Smoking Status: Former smoker Tobacco Type: Cigarettes Age Started Using Tobacco: 22; packs per day: 1; Cigarettes Per Day: 20; Second Hand Exposure: No; Do You Dip or Chew Tobacco: No; Hx Alcohol Use: No Hx Substance Use: No Preferred Language: [place] Citizen Communication Ability: Impaired Communication Ability Comment: needs an 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 Communication Tools: Sign Language Visual Impairment: Limited Hearing Ability: Housing Case Manager Required: Yes Beliefs That Will Affect Care: None marital status: Single Current Living Situation: Alone Current Living Situation Comment: patient lives with a friend current occupational status: retired and disabled How many Children do You have: 0 Feels Safe at Home: Yes Childhood Exposure to Second-Hand Smoke: No Diet: regular caffeine: Yes (coffee and soda ) Dental Care, Regularly: No Physical Activity Frequency: Does not Exercise Seatbelt Use: always Sunscreen Use: No Assistive Devices: Cane Allergies Allergies Allergy/AdvReac Type Severity Reaction Status Date / Time No Known Allergies Allergy Verified 12/14/22 19:32 Home Meds Home Medications Medication Instructions Recorded Confirmed acetaminophen 500 mg tablet 500 mg PO HS 12/29/17 12/14/22 (Tylenol Extra Strength) aspirin 81 mg tablet,delayed 81 mg PO QAM 12/29/17 12/14/22 release calcium carbonate 300 mg (750 mg) 300 mg PO QID PRN Acid Reflux 12/29/17 12/14/22 chewable tablet (Tums E-X) Triflex 1 cap PO QAM 03/26/20 12/14/22 cholecalciferol (vitamin D3) 50 2,000 unit PO QAM 03/26/20 12/14/22 mcg (2,000 unit) tablet (Vitamin D3) coQ10 (ubiquinol) 200 mg capsule 200 mg PO QAM 03/26/20 12/14/22 cyanocobalamin (vitamin B-12) 1,000 mcg PO QAM 03/26/20 12/14/22 1,000 mcg tablet (Vitamin B-12) vitamins A,C,M-pkib-vndlxm 4,296 1 cap PO QAM 03/26/20 12/14/22 mcg-226 mg-90 mg capsule (PreserVision AREDS) glucosamine MUx-L0-Gucuuervh 1 tab PO DAILY 07/27/22 12/14/22 yanira 1,500 mg-400 unit-100 mg tablet (Osteo Bi-Flex (5-Loxin)) ranolazine 500 mg tablet,extended 500 mg PO BID 09/04/22 12/14/22 release,12 hr alprazolam 0.5 mg tablet See Rx Instructions PO .COMPLEX 12/14/22 12/14/22 PRN PRIOR TO PROCEDURE. baclofen 10 mg tablet 10 mg PO BID 12/14/22 12/14/22 multivitamin 1 tab PO DAILY 12/14/22 12/14/22 oxybutynin chloride 5 mg tablet 5 mg PO DAILY PRN Bladder Spasms 12/14/22 12/14/22 pantoprazole 20 mg tablet,delayed 20 mg PO DAILYBB 12/14/22 12/14/22 release Previous Rx's Medication Instructions Recorded nitroglycerin 0.4 mg sublingual 0.4 mg sublingual Q5M PRN Chest 07/08/21 tablet (Nitrostat) Pain #30 tabs triamcinolone acetonide 0.1 % 1 applic topical BID PRN itching 08/08/21 topical cream #30 grams duloxetine 30 mg capsule,delayed 30 mg PO DAILY #90 caps 12/04/21 release calcipotriene-betamethasone 0.005 1 applic topical DAILY 4 weeks #60 02/23/22 %-0.064 % topical ointment grams atorvastatin 80 mg tablet 80 mg PO HS #90 tabs 06/11/22 meloxicam 7.5 mg tablet 7.5 mg PO DAILY #30 tabs 06/11/22 sildenafil 50 mg tablet (Viagra) 50 mg PO DAILY PRN Erectile 10/14/22 Dysfunction #30 tabs acetaminophen 300 mg-codeine 30 mg 1 tab PO Q8H PRN pain #6 tabs 12/08/22 tablet lidocaine 5 % topical patch 1 patch topical DAILY PRN pain #15 12/08/22 ea Results & Data (ED) Vital Signs Vital Signs - 24 hr 12/14/22 16:19 12/14/22 18:07 12/14/22 20:00 Temperature 36.8 C Temperature Source Temporal Artery Scan Pulse Rate 58 L Pulse Rate [Apical] 54 L 62 Respiratory Rate 18 20 Respiratory Effort / Characteristics Non-Labored Spontaneous Non-Labored Respiratory Depth Normal Normal Blood Pressure 172/68 H Blood Pressure [Right Arm] 169/81 H 169/79 H Blood Pressure Mean 102 Blood Pressure Mean [Right Arm] 110 109 Pulse Oximetry 97 95 95 Oxygen Delivery Method Room Air Room Air Room Air Sepsis Recent Fever Within 48 Hours No Sepsis New/Unexplained Change in Mental Status N/A Sepsis Action Taken by Nursing No Action Required Home Medications Current Medication List: was personally reviewed by me Laboratory Data Attestation: I reviewed the patient's lab results. 12/14/22 19:22 12/14/22 19:22 Lab Results 12/14/22 12/14/22 Range/Units 19:22 19:22 WBC 9.29 (4.8-10.8) K/ul RBC 4.36 L (4.70-6.10) M/uL Hgb 14.1 (14.0-18.0) g/dl Hct 39.9 L (42.0-52.0) % MCV 91.5 (80.0-100.0) fL MCH 32.3 (25.0-34.0) pg MCHC 35.3 (32.0-36.0) g/dL RDW Std Deviation 40.3 (36.4-46.3) fL RDW Coeff of Aashish 12.1 (11.5-14.5) % Plt Count 292 (130-400) K/uL MPV 9.4 (9.4-12.4) fL Immature Gran % (Auto) 0.4 % Neut % (Auto) 65.5 % Lymph % (Auto) 23.3 % [place] % (Auto) 8.5 % Eos % (Auto) 1.7 % Baso % (Auto) 0.6 % Neut # (Auto) 6.08 (1.40-6.50) K/uL Lymph # (Auto) 2.16 (1.20-3.40) K/uL [place] # (Auto) 0.79 H (0.11-0.59) K/uL Eos # (Auto) 0.16 (0.00-0.50) K/uL Baso # (Auto) 0.06 (0.00-0.20) K/uL Immature Gran # (Auto) 0.04 (0.01-0.20) K/uL Sodium 138 (136-145) mmol/L Potassium 4.2 (3.5-5.1) mmol/L Chloride 104 (98-107) mmol/L Carbon Dioxide 26 (21-32) mmol/L Anion Gap 8 (3-11) BUN 15 (6-23) mg/dl Creatinine 0.92 (0.6-1.4) mg/dl Est Cr Clr Drug Dosing Not Reportable Est GFR ( Amer) 97.3 ml/min Est GFR (Non-Af Amer) 84.0 ml/min BUN/Creatinine Ratio 16.3 (10-20) Glucose 96 (70-99(Fasting)) mg/dl Calcium 9.6 (8.6-10.3) mg/dl Total Bilirubin 0.5 (0.2-1.0) mg/dl AST 19 (13-39) U/L ALT 24 (7-52) U/L Alkaline Phosphatase 67 (34-104) U/L Total Protein 7.3 (6.0-8.3) gm/dl Albumin 4.5 (3.4-5.0) gm/dl Globulin 2.8 (2.5-4.0) gm/dl Albumin/Globulin Ratio 1.6 (0.9-2) Administered Medications Acetaminophen (Acetaminophen 325 Mg Tab) 650 mg PO Q6H HILDA Stop: 01/13/23 21:44 Last Admin: 12/14/22 23:16 Dose: 650 mg Documented By: EARLENE Atorvastatin Calcium (Atorvastatin 40 Mg Tab) 80 mg PO HS HILDA Stop: 01/13/23 21:35 Last Admin: 12/14/22 22:43 Dose: 80 mg Documented By: LEIA Baclofen (Baclofen 10 Mg Tab) 10 mg PO BID HILDA Stop: 01/13/23 21:35 Last Admin: 12/14/22 22:43 Dose: 10 mg Documented By: LEIA Miscellaneous (Remove Lidoderm Patch) 1 each N/A DAILY@2100 HILDA Stop: 01/13/23 21:35 Last Admin: 12/14/22 23:14 Dose: 1 each Documented By: TERRY Ranolazine (Ranolazine 500 Mg Er Tab) 500 mg PO BID HILDA Stop: 01/13/23 21:35 Last Admin: 12/14/22 22:42 Dose: 500 mg Documented By: LEIA Discontinued Medications Acetaminophen (Acetaminophen 500 Mg Tab) 500 mg PO HS HILDA Stop: 01/13/23 21:35 Last Admin: 12/14/22 23:11 Dose: Not Given Documented By: EARLENE Morphine Sulfate (Morphine Sulfate 4 Mg/Ml 1 Ml Carp\Vial) 4 mg IV NOW STA Stop: 12/14/22 19:08 Last Admin: 12/14/22 19:20 Dose: 4 mg Documented By: MALLORY Ondansetron HCl (Ondansetron Inj 2 Mg/Ml 2 Ml Vial) 4 mg IV NOW STA Stop: 12/14/22 19:08 Last Admin: 12/14/22 19:19 Dose: 4 mg Documented By: MALLORY Imaging Data Radiologist's Impression: Cervical Spine CT 12/14/22 19:05 Exam(s): CT C SPINE EXAM: CT Cervical Spine Without Intravenous Contrast CLINICAL HISTORY: Reason for exam: fall, pain. TECHNIQUE: Axial computed tomography images of the cervical spine without intravenous contrast. CTDI is 26 mGy and DLP is 491.25 mGy-cm. Automated exposure control was utilized for the study. A dose lowering technique was utilized adhering to the principles of ALARA. COMPARISON: No relevant prior studies available. FINDINGS: The vertebral body heights are maintained. The craniocervical junction is intact. The atlanto-dens interval is maintained. The dens is intact. Grade 2 anterolisthesis of C7 on T1, measures 6 mm. Multilevel posterior cervical fusion hardware, which extends from C3-C6). Cerclage wires are present in the posterior elements of C7 and T1. Multilevel cervical spondylosis and degenerative disc disease. Straightening of the cervical lordosis. Severe osseous demineralization. IMPRESSION: No cervical spine fracture. Posterior fusion, as described. Grade 2 anterolisthesis of C7 on T1, measures 6 mm. Electronically signed by: Carrillo Glez MD 12/14/22 20:[address] 12/14/22 19:05 Exam(s): CT HEAD Without Contrast EXAM: CT Head Without Intravenous Contrast CLINICAL HISTORY: Reason for exam: fall, pain. TECHNIQUE: Axial computed tomography images of the head/brain without intravenous contrast. CTDI is 38.64 mGy and DLP is 624.41 mGy-cm. Automated exposure control was utilized for the study. A dose lowering technique was utilized adhering to the principles of ALARA. COMPARISON: No relevant prior studies available. FINDINGS: No acute intracranial hemorrhage. No midline shift or mass effect. The territorial gooden-white matter differentiation is maintained throughout. The ventricles and sulci are commensurate with age. The visualized orbits appear grossly unremarkable. The calvarium is intact. The visualized paranasal sinuses and mastoid air cells are grossly clear. IMPRESSION: No acute intracranial hemorrhage, midline shift, or mass effect. Electronically signed by: Carrillo Glez MD 12/14/22 20:11 PM Discharge Plan Visit Data Chief Complaint: Fall Stated Complaint: FALL, BLOOD THINNERS, NECK PAIN ED Provider: Michelet Dennis Discharge Problem: Weakness, Frequent falls, Neck pain on left side, Cerebral palsy Patient Disposition: Admitted As Inpatient Condition: Fair Discharge Instructions Interventions: ED Discharge Assessment Last Done: 12/14/22 21:37
[2022-12-14 19:33] LABS: Basophils # (auto) 0.06 K/uL (0.00-0.20); Basophils % (auto) 0.6 %; Eosinophils # (auto) 0.16 K/uL (0.00-0.50); Eosinophils % (auto) 1.7 %; Hematocrit (blood only) 39.9 % (42.0-52.0); Hemoglobin 14.1 g/dl (14.0-18.0); Immature Granulocytes # (auto) 0.04 K/uL (0.01-0.20); Immature Granulocytes % (auto) 0.4 %; Lymphocytes # (auto) 2.16 K/uL (1.20-3.40); Lymphocytes % (auto) 23.3 %; Mean Corpuscular Hemoglobin 32.3 pg (25.0-34.0); Mean Corpuscular Hgb Conc 35.3 g/dL (32.0-36.0); Mean Corpuscular Volume 91.5 fL (80.0-100.0); Mean Platelet Volume 9.4 fL (9.4-12.4); Monocytes # (auto) 0.79 K/uL (0.11-0.59); Monocytes % (auto) 8.5 %; Neutrophils # (auto) 6.08 K/uL (1.40-6.50); Neutrophils % (auto) 65.5 %; Platelet Count 292 K/uL (130-400); RDW Coefficient of Variation 12.1 % (11.5-14.5); RDW Standard Deviation 40.3 fL (36.4-46.3); Red Blood Count 4.36 M/uL (4.70-6.10); White Blood Count 9.29 K/ul (4.8-10.8)
[2022-12-14 19:51] LABS: Alanine Aminotransferase 24 U/L (7-52); Albumin Globulin Ratio 1.6 (0.9-2); Albumin Level 4.5 gm/dl (3.4-5.0); Alkaline Phosphatase 67 U/L (34-104); Anion Gap 8 (3-11); Aspartate Aminotransferase 19 U/L (13-39); BUN Creatinine Ratio 16.3 (10-20); Bilirubin,Total 0.5 mg/dl (0.2-1.0); Blood Urea Nitrogen 15 mg/dl (6-23); Calcium 9.6 mg/dl (8.6-10.3); Carbon Dioxide 26 mmol/L (21-32); Chloride 104 mmol/L (98-107); Est GFR (African American) 97.3 ml/min; Globulin 2.8 gm/dl (2.5-4.0); Glucose 96 mg/dl (70-99(Fasting)); Potassium 4.2 mmol/L (3.5-5.1); Sodium 138 mmol/L (136-145); Total Protein 7.3 gm/dl (6.0-8.3)
--- NOTE | 2022-12-14 20:11 | CT Scan Report ---
Exam(s): CT HEAD Without Contrast EXAM: CT Head Without Intravenous Contrast CLINICAL HISTORY: Reason for exam: fall, pain. TECHNIQUE: Axial computed tomography images of the head/brain without intravenous contrast. CTDI is 38.64 mGy and DLP is 624.41 mGy-cm. Automated exposure control was utilized for the study. A dose lowering technique was utilized adhering to the principles of ALARA. COMPARISON: No relevant prior studies available. FINDINGS: No acute intracranial hemorrhage. No midline shift or mass effect. The territorial gooden-white matter differentiation is maintained throughout. The ventricles and sulci are commensurate with age. The visualized orbits appear grossly unremarkable. The calvarium is intact. The visualized paranasal sinuses and mastoid air cells are grossly clear. IMPRESSION: No acute intracranial hemorrhage, midline shift, or mass effect. Electronically signed by: Carrillo Glez MD 12/14/22 20:11 PM
--- NOTE | 2022-12-14 20:13 | CT Scan Report ---
Exam(s): CT C SPINE EXAM: CT Cervical Spine Without Intravenous Contrast CLINICAL HISTORY: Reason for exam: fall, pain. TECHNIQUE: Axial computed tomography images of the cervical spine without intravenous contrast. CTDI is 26 mGy and DLP is 491.25 mGy-cm. Automated exposure control was utilized for the study. A dose lowering technique was utilized adhering to the principles of ALARA. COMPARISON: No relevant prior studies available. FINDINGS: The vertebral body heights are maintained. The craniocervical junction is intact. The atlanto-dens interval is maintained. The dens is intact. Grade 2 anterolisthesis of C7 on T1, measures 6 mm. Multilevel posterior cervical fusion hardware, which extends from C3-C6). Cerclage wires are present in the posterior elements of C7 and T1. Multilevel cervical spondylosis and degenerative disc disease. Straightening of the cervical lordosis. Severe osseous demineralization. IMPRESSION: No cervical spine fracture. Posterior fusion, as described. Grade 2 anterolisthesis of C7 on T1, measures 6 mm. Electronically signed by: Carrillo Glez MD 12/14/22 20:12 PM
--- NOTE | 2022-12-14 20:44 | History & Physical Report ---
Date of Service December 14, 2022 Assessment & Plan (1) Acute neck pain: Plan: -Admit to med/surge -Currently stable with pain moderately controlled -Started to experience severe, left-sided neck/paraspinal pain after sustaining a ground level, mechanical fall 4 weeks ago at home -No new neurologic symptoms, CT of the head and CT of the cervical spine are negative for acte trauma -CT of the neck shows stable previous cervical fusion with Grade 2 anterolisthesis of C7 on T1 and Severe osseous demineralization -At this time the etiology of the patient's severe left neck patient is most likely associated with muscle spasms and chronic arthritis exacerbated by his recent fall -Patient is interested in PT/OT and home health, placed consults for PT/OT/and case management -Pain control with scheduled tylenol, lidocaine patch, heat, IV morphine for severe pain, and home baclofen -Fall precautions ordered -SQ lovenox for DVT PPX -HH diet with aspiration precautions -AM CBC, BMP, Mag (2) Anxiety disorder: Plan: -Continue prn Xanax, Duloxetine, (3) Cerebral palsy: Plan: -Fall precuations (4) History of myocardial infarction: Plan: -Continue ranolazine, aspirin and statin (5) Chronic obstructive pulmonary disease: Plan: -Stable on RA -Lungs are clear -Incentive spirometry for now (6) Deafness: Plan: -Continue to use javascript engineer with communication (7) Reactive depression: Plan: Continue Duloxetine Plan The patient was discussed with Dr. Queen at the time of the admission History of Present Illness Chief Complaint: Mechanical fall, need for placement Primary Care Provider: NO PCP Arnav is a 72 year old male with a PMH significant for Cerebral Palsy, severe deafness (Uses sign language to communicate), recurrent falls, COPD, coronary artery disease, anemia, cervical dystonia status postlaminectomy in 2004, hypertension, hyperlipidemia, anxiety and depression who presented to the [facility] ED on 12/14 for recurrent falls and left neck pain. He remained stable in the ED. Labs including CBC and CMP were unremarkable. CT of the head was read as "No acute intracranial hemorrhage, midline shift, or mass effect.". CT of the cervical spine was read as "No cervical spine fracture. Posterior fusion, as described. Grade 2 anterolisthesis of C7 on T1, measures 6 mm.". Prior to admission the patient was given 8 mg IV morphine and a lidocaine patch. At the time of the exam the patient was lying in bed in no acute distress with his friend/roommate sitting bedside. History was obtained from the use of the digital tangled yarn spool straightener as the patient uses sign language to communicate. He states that he has a previous history of cervical fusion in 2004. Since his fusion he has been doing well and without significancy neck pain. He is supposed to use a walker/can for ambulation, especially when his roommate is not home. However, he has not been using his walker as much as he should. Approximately 4 weeks ago he had a fall while ambulating due to slipping, he denies hitting his head or losing consciousness. He states that since that fall he has been having progressive, right sided neck pain. He denies headache, changes in vision, hearing, taste, and smell, new weakness or paresthesias, chest pain, SOB, abd pain, nausea, vomiting, diarrhea, dysuria, and hematuria. He denies any other pain since his fall. He feels as though he needs additional help at home when his roommate is at work. When his roommate is at home they are able to help him greatly. We discussed code status, he is a full code. Please see Dr. Queen's attestation for any changes to the treatment plan Allergies Allergy/AdvReac Type Severity Reaction Status Date / Time No Known Allergies Allergy Verified 12/14/22 19:32 Home Medications Medication Instructions Recorded Confirmed Type acetaminophen 500 mg tablet 500 mg PO HS 12/29/17 12/14/22 History (Tylenol Extra Strength) aspirin 81 mg tablet,delayed 81 mg PO QAM 12/29/17 12/14/22 History release calcium carbonate 300 mg (750 mg) 300 mg PO QID PRN Acid Reflux 12/29/17 12/14/22 History chewable tablet (Tums E-X) Triflex 1 cap PO QAM 03/26/20 12/14/22 History cholecalciferol (vitamin D3) 50 2,000 unit PO QAM 03/26/20 12/14/22 History mcg (2,000 unit) tablet (Vitamin D3) coQ10 (ubiquinol) 200 mg capsule 200 mg PO QAM 03/26/20 12/14/22 History cyanocobalamin (vitamin B-12) 1,000 mcg PO QAM 03/26/20 12/14/22 History 1,000 mcg tablet (Vitamin B-12) vitamins A,C,U-igtq-akmmxf 4,296 1 cap PO QAM 03/26/20 12/14/22 History mcg-226 mg-90 mg capsule (PreserVision AREDS) nitroglycerin 0.4 mg sublingual 0.4 mg sublingual Q5M PRN Chest 07/08/21 12/14/22 Rx tablet (Nitrostat) Pain #30 tabs triamcinolone acetonide 0.1 % 1 applic topical BID PRN itching 08/08/21 12/14/22 Rx topical cream #30 grams duloxetine 30 mg capsule,delayed 30 mg PO DAILY #90 caps 12/04/21 12/14/22 Rx release calcipotriene-betamethasone 0.005 1 applic topical DAILY 4 weeks #60 02/23/22 12/14/22 Rx %-0.064 % topical ointment grams atorvastatin 80 mg tablet 80 mg PO HS #90 tabs 06/11/22 12/14/22 Rx meloxicam 7.5 mg tablet 7.5 mg PO DAILY #30 tabs 06/11/22 12/14/22 Rx glucosamine [id number] 1 tab PO DAILY 07/27/22 12/14/22 History yanira 1,500 mg-400 unit-100 mg tablet (Osteo Bi-Flex (5-Loxin)) ranolazine 500 mg tablet,extended 500 mg PO BID 09/04/22 12/14/22 History release,12 hr sildenafil 50 mg tablet (Viagra) 50 mg PO DAILY PRN Erectile 10/14/22 12/14/22 Rx Dysfunction #30 tabs acetaminophen 300 mg-codeine 30 mg 1 tab PO Q8H PRN pain #6 tabs 12/08/22 12/14/22 Rx tablet lidocaine 5 % topical patch 1 patch topical DAILY PRN pain #15 12/08/22 12/14/22 Rx ea alprazolam 0.5 mg tablet See Rx Instructions PO .COMPLEX 12/14/22 12/14/22 History PRN PRIOR TO PROCEDURE. baclofen 10 mg tablet 10 mg PO BID 12/14/22 12/14/22 History multivitamin 1 tab PO DAILY 12/14/22 12/14/22 History oxybutynin chloride 5 mg tablet 5 mg PO DAILY PRN Bladder Spasms 12/14/22 12/14/22 History pantoprazole 20 mg tablet,delayed 20 mg PO DAILYBB 12/14/22 12/14/22 History release Past Med/Surg History Medical History Anxiety disorder Cerebral palsy Cervical dystonia Cervical radiculopathy Cervicalgia Deafness complete--pt uses sign language to communicate Depressive psychosis History of myocardial infarction 2007--had a heart cath with 2 stents placed--follows with Dr. Allen Hyperlipidemia Hypertension Myofascial pain Postlaminectomy syndrome Cervical Psoriasis Reactive depression Right knee pain Stomach ulcer Surgical History H/O cardiac catheterization H/O inguinal hernia repair H/O laminectomy History of bunionectomy of right great toe History of carpal tunnel surgery of left wrist History of colonoscopy with polypectomy History of heart artery stent History of tooth extraction History of wisdom tooth extraction Family History Brother Colorectal cancer Mother Hypertension Other Leukemia Denies family history of Ovarian cancer Prostate cancer Diabetes Hearing loss Coronary heart disease No family history of adverse response to anesthesia No family history of bleeding disorder Heart disease Allergies Myocardial infarction Breast cancer Cancer Stroke Asthma Social History Smoking Status: Former smoker Tobacco Type: Cigarettes Age Started Using Tobacco: 22; packs per day: 1; Cigarettes Per Day: 1 pack every 2 days; Second Hand Exposure: Yes (brother); Do You Dip or Chew Tobacco: No; Hx Alcohol Use: Yes Alcohol type: wine Alcohol Intake Frequency: Monthly or Less Hx Substance Use: No Preferred Language: Tristanian Communication Ability: deaf Communication Ability Comment: needs an tangled yarn spool straightener Communication Tools: Sign Language Visual Impairment: Limited Hearing Ability: School Business Administrator Required: Yes and Video Beliefs That Will Affect Care: None marital status: Single Current Living Situation: Other Current Living Situation Comment: roomate current occupational status: retired and disabled How many Children do You have: 0 Other Information That Helps Us Care for You: No Feels Safe at Home: No Is there a partner from a previous relationship who is making you feel unsafe now?: No Any Concerns about Your Family Situation: No Would You Like to Speak to Someone About Your Situation: No Safety Concerns: Feels Safe At This Time Childhood Exposure to Second-Hand Smoke: No Diet: regular caffeine: Yes (coffee and soda ) Dental Care, Regularly: No Physical Activity Frequency: Does not Exercise Seatbelt Use: always Sunscreen Use: No Assistive Devices: Glasses and Hearing Aid - Bilateral Physical Exam Physical Exam: Physical Exam: General: In no acute distress, stated age, well-nourished, good hygiene HEENT: Normocephalic, atraumatic, no scleral icterus, pupils around round, symmetrical, and reactive to light, moist mucus membranes, trachea midline, no thyromegaly Chest/Pulm: No respiratory distress, symmetrical chest expansion, clear breath sounds throughout, no tenderness to palpation over the BL chest Cardiac: RRR, no murmurs noted Abdomen: Negative for ascites and bruising, normoactive bowel sounds, soft, non-tender to palpation throughout Musculoskeletal: Patient without acute trauma to inspection or palpation of the face or head. Previous surgical scar noted over the cervical spine which appears well healed, no tenderness to palpation over the cervical spine itself, pain over the left paraspinal muscles, otherwise no tenderness to palpation of the thoracic or lumbar spine, intact and symmetrical strength in the BL upper extremities, intact and symmetrical strength in the BL LE's Extremities: Radial, dorsalis pedis, and posterior tibial pulses are intact and symmetrical, no edema noted in the BL LE's Skin: Warm, dry, no rashes , lesions, or scars noted Neuro: Alert and oriented to person, place, month, year, and president, no focal defects, CN II-XII tested and intact, finger to nose test negative, no tremors noted Psych: No acute distress, calm and cooperative during the exam Results & Data Results & Data Vital Signs (Past 12 Hours) Vital Signs Temp Pulse Pulse Resp BP BP Pulse Ox 12/14/22 18:07 54 L 20 169/81 H 95 12/14/22 16:19 36.8 C 58 L 18 172/68 H 97 O2 Del Method 12/14/22 18:07 Room Air 12/14/22 16:19 Room Air Laboratory Results Abnormal lab results 12/14/22 Range/Units 19:22 RBC 4.36 L (4.70-6.10) M/uL Hct 39.9 L (42.0-52.0) % Josephine # (Auto) 0.79 H (0.11-0.59) K/uL Diagnostic Findings Cervical Spine CT 12/14/22 19:05 Exam(s): CT C SPINE EXAM: CT Cervical Spine Without Intravenous Contrast CLINICAL HISTORY: Reason for exam: fall, pain. TECHNIQUE: Axial computed tomography images of the cervical spine without intravenous contrast. CTDI is 26 mGy and DLP is 491.25 mGy-cm. Automated exposure control was utilized for the study. A dose lowering technique was utilized adhering to the principles of ALARA. COMPARISON: No relevant prior studies available. FINDINGS: The vertebral body heights are maintained. The craniocervical junction is intact. The atlanto-dens interval is maintained. The dens is intact. Grade 2 anterolisthesis of C7 on T1, measures 6 mm. Multilevel posterior cervical fusion hardware, which extends from C3-C6). Cerclage wires are present in the posterior elements of C7 and T1. Multilevel cervical spondylosis and degenerative disc disease. Straightening of the cervical lordosis. Severe osseous demineralization. IMPRESSION: No cervical spine fracture. Posterior fusion, as described. Grade 2 anterolisthesis of C7 on T1, measures 6 mm. Electronically signed by: Carrillo Glez MD 12/14/22 20:[address] 12/14/22 19:05 Exam(s): CT HEAD Without Contrast EXAM: CT Head Without Intravenous Contrast CLINICAL HISTORY: Reason for exam: fall, pain. TECHNIQUE: Axial computed tomography images of the head/brain without intravenous contrast. CTDI is 38.64 mGy and DLP is 624.41 mGy-cm. Automated exposure control was utilized for the study. A dose lowering technique was utilized adhering to the principles of ALARA. COMPARISON: No relevant prior studies available. FINDINGS: No acute intracranial hemorrhage. No midline shift or mass effect. The territorial gooden-white matter differentiation is maintained throughout. The ventricles and sulci are commensurate with age. The visualized orbits appear grossly unremarkable. The calvarium is intact. The visualized paranasal sinuses and mastoid air cells are grossly clear. IMPRESSION: No acute intracranial hemorrhage, midline shift, or mass effect. Electronically signed by: Carrillo Glez MD 12/14/22 20:11 PM Code Status & VTE Plan Code Status Full code VTE Prophylaxis Plan VTE Prophylaxis will be ordered: Yes Supervising Physician Co-Signing Physician Notes Attending addendum: I have physically seen this patient, have supervised the patient ROHINI's medical activities, and agree with the H&P unless as otherwise noted. Assessment and Plan: Increasing frequency of falls- Secondary to issues with cerebral palsy and in spite of using walker Presently complaining of left-sided neck and paraspinal pain after ground-level fall about 4 weeks ago History of cervical spine fusion with grade 2 anterolisthesis of C7 on T1 Likely associated muscle spasm Pain management with Tylenol, lidocaine patch heat, IV morphine and baclofen as noted Consult PT/OT Cerebral palsy- Continue usual supportive measures History of [place]- Continue ranolazine, aspirin and atorvastatin Check a fasting lipid panel Anxiety and depression- Continue Xanax, duloxetine PG Care Time/CCT Total # of Minutes Spent Total Time Spent with Patient: Total time spent is greater than 50% in coordination of care (as documented) at patient's floor/unit and/or counseling patient: [place] [address] INT INP/OBS CARE 2/55MIN Patient Type Established Medical Decision Making Moderate Complexity Diagnoses Acute neck pain M54.2 Anxiety disorder F41.9 Cerebral palsy G80.9 Cerebral palsy type: unspecified type History of myocardial infarction I25.2 Chronic obstructive pulmonary disease J44.9 COPD type: unspecified COPD Deafness H91.90 Reactive depression F32.9 (3) Cerebral palsy Cerebral palsy type: unspecified type Qualified Code(s): G80.9 - Cerebral pal sy, unspecified (5) Chronic obstructive pulmonary disease COPD type: unspecified COPD Qualified Code(s): J44.9 - Chronic obstructive pulmonary disease, unspecified
[2022-12-14] MEDS ORDERED: ACETAMINOPHEN 325 MG TAB PO PRN (21:36)
[2022-12-14] MEDS ORDERED: ACETAMINOPHEN 500 MG TAB PO SCH (21:36)
[2022-12-14] MEDS ORDERED: ACETAMINOPHEN W/CODEINE #3 1 TAB PO PRN (21:36)
[2022-12-14] MEDS ORDERED: oxyBUTYnin chloride 5 MG TAB PO PRN (21:36)
[2022-12-14] MEDS: RANOLAZINE 500 MG ER TAB PO SCH (22:42)
[2022-12-14] MEDS: BACLOFEN 10 MG TAB PO SCH (22:43)
[2022-12-14] MEDS: ATORVASTATIN 40 MG TAB PO SCH (22:43)
[2022-12-14] MEDS: ACETAMINOPHEN 325 MG TAB PO SCH (23:16)
[2022-12-14] MEDS ORDERED: Nursing to Pharmacy Communication SCH (23:30)
[2022-12-15] MEDS: MoRPHine SULFATE 2 MG/ML CARP IV PRN ×2 (01:10→06:41)
[2022-12-15] MEDS: ACETAMINOPHEN 325 MG TAB PO SCH ×4 (06:34→22:38)
[2022-12-15] MEDS: PANTOprazole 40 MG TAB PO SCH (06:34)
--- NOTE | 2022-12-15 06:35 | Billing Data ---
Date of Service December 15, 2022 Coding Level of Care Code 21577 INT INP/OBS CARE
[2022-12-15 07:03] LABS: Basophils # (auto) 0.05 K/uL (0.00-0.20); Basophils % (auto) 0.8 %; Eosinophils # (auto) 0.17 K/uL (0.00-0.50); Eosinophils % (auto) 2.7 %; Hematocrit (blood only) 37.4 % (42.0-52.0); Hemoglobin 12.8 g/dl (14.0-18.0); Immature Granulocytes # (auto) 0.03 K/uL (0.01-0.20); Immature Granulocytes % (auto) 0.5 %; Lymphocytes # (auto) 1.87 K/uL (1.20-3.40); Lymphocytes % (auto) 29.5 %; Mean Corpuscular Hemoglobin 32.1 pg (25.0-34.0); Mean Corpuscular Hgb Conc 34.2 g/dL (32.0-36.0); Mean Corpuscular Volume 93.7 fL (80.0-100.0); Mean Platelet Volume 9.5 fL (9.4-12.4); Monocytes # (auto) 0.65 K/uL (0.11-0.59); Monocytes % (auto) 10.3 %; Neutrophils # (auto) 3.57 K/uL (1.40-6.50); Neutrophils % (auto) 56.2 %; Platelet Count 283 K/uL (130-400); RDW Coefficient of Variation 11.9 % (11.5-14.5); RDW Standard Deviation 41.5 fL (36.4-46.3); Red Blood Count 3.99 M/uL (4.70-6.10); White Blood Count 6.34 K/ul (4.8-10.8)
--- NOTE | 2022-12-15 07:33 | Hospitalist Progress Note ---
Date of Service December 15, 2022 Assessment & Plan (1) Frequent falls: (2) Acute neck pain: (3) Cerebral palsy: (4) Neck pain on left side: (5) Anxiety disorder: (6) History of myocardial infarction: (7) Reactive depression: (8) Deafness: Plan Pt is a 72 yo deaf male with a past medical history significant for cerebral palsy who presents to the hospital on 12/14 for L lateral neck pain after fall 4 weeks ago. He lives at home with a roommate. #Acute neck pain - fall 4 weeks ago, CT of the head and cervical spine are negative for trauma on admission - will discontinue IV morphine for severe pain and transition to po oxycodone 5mg today, continue tylenol, lidocaine patch, and heat with home baclofen - PT and OT consulted, awaiting recommendations #Anxiety disorder -Continue prn Xanax, Duloxetine #Cerebral palsy -Fall precautions #History of myocardial infarction -Continue ranolazine, aspirin and statin #Chronic obstructive pulmonary disease -Stable on RA -Lungs are clear -Incentive spirometry for now #Deafness - Continue to use door to door sales representative for clear communication #Reactive depression - Continue Duloxetine Fall precautions ordered DVT PPX: SQ lovenox Diet: HH diet with aspiration precautions Admission and Anticipated Discharge Date Admission Date: December 14, 2022 Supervising Physician Co-Signing Physician Notes Attending attestation Pt seen and examined in concert with Dr. Sinha. In agreement with the documented findings as noted in the resident documentation with any exceptions or additions as noted here. Resting in bed with continuing complaint of left sided neck pain/medial shoulder pain. Reports that botox has worked for this pain in the past and that the current medication interventions are helping somewhat. On examination, S1/S2 nl RRR no MCG. CTAB. Abd NT/ND BS+ve. Bilateral shoulder spasm/pain L > R without significant spinal TTP on examination. Intractable acute on chronic neck pain - transition to PO oxycodone as well as APAP, lidocaine patch, duloxetine. PT/OT consult appreciated. Consider pain mgmt for evaluation for procedural pain control/injection. Else see resident documentation as noted. Subjective Pt is a 72 yo deaf male with a past medical history significant for cerebral palsy who presents to the hospital on 12/14 for L lateral neck pain after fall 4 weeks ago. Pt was seen this morning. Communication was done via the [employer]. Pt states he is feeling well today and his neck pain is much better. He denies any questions or complaints this morning and says he feels just fine. Later in the morning he was complaining of L lateral neck spasms and pain. Review of Systems Review of Systems: Cardio: denies chest pain, palpitations Resp: denies shortness of breath, Physical Exam Physical Exam: General:Alert and oriented, no acute distress, sitting comfortable in bed HEENT: Normocephalic, moist oral mucosa, Cardio: Regular rate and rhythm, Resp:Lungs clear to auscultation b/l, Skin: Warm, pink, dry, MSK: Tight paraspinal muscles of the cervical spine noted with particular hypertonicity of the L lateral neck musculature Psych: Mood-affect congruence. Results & Data Results & Data Vital Signs (Past 12 Hours) Vital Signs Temp Pulse Pulse Pulse Resp BP Pulse Ox 12/15/22 02:00 154/72 H 12/15/22 01:00 12/15/22 00:36 36.3 C L 58 L 16 199/73 H 95 12/14/22 23:18 36.6 C 61 17 155/77 H 94 12/14/22 22:46 65 96 12/14/22 22:45 65 18 155/88 H 95 12/14/22 22:00 64 18 155/88 H 97 12/14/22 20:00 62 169/79 H 95 O2 Del Method 12/15/22 02:00 12/15/22 01:00 Room Air 12/15/22 00:36 Room Air 12/14/22 23:18 Room Air 12/14/22 22:46 Room Air 12/14/22 22:45 12/14/22 22:00 Room Air 12/14/22 20:00 Room Air Resident Activity Tracking Resident Involvement: Resident Care Provided Care Provided: Adult Hospital Medicine (3) Cerebral palsy Cerebral palsy type: unspecified type Qualified Code(s): G80.9 - Cerebral palsy, unspecified
--- NOTE | 2022-12-15 07:38 | XRay Report ---
XR chest 1V portable HISTORY: neck pain, fall COMPARISON: Chest 08/06/2020. FINDINGS: The lungs are clear. Cardiac silhouette is normal in size. No pleural effusions. No pneumot horax. Mild emphysema. Cerclage wires overlying the lower cervical spine again noted. IMPRESSION: No acute process. ACT 112: Negative or not required by law. Electronically signed by: Sanjay Frye M.D. 12/15/2022 7:36 AM
[2022-12-15 07:49] LABS: BUN Creatinine Ratio 18.2 (10-20); Creatinine Clr Calc Pharmacy 60.5 ml/min; Est GFR (African American) 89.1 ml/min; Est GFR (Non-African American) 76.8 ml/min; Potassium 3.9 mmol/L (3.5-5.1)
[2022-12-15] MEDS: ASPIRIN 81 MG ECTAB PO SCH (08:40)
[2022-12-15] MEDS: ENOXAPARIN INJ 40 MG/0.4 ML SYR SQ SCH (08:41)
[2022-12-15] MEDS: DULoxetine HCL 30 MG CAP PO SCH (08:41)
[2022-12-15] MEDS: BACLOFEN 10 MG TAB PO SCH ×2 (10:11→20:07)
[2022-12-15] MEDS: RANOLAZINE 500 MG ER TAB PO SCH ×2 (10:11→20:07)
[2022-12-15] MEDS ORDERED: INFLUENZA VACCINE HIGH-DOSE (HD-IIV4) PF 65+ 0.7mL SYR IM ONE (11:30)
[2022-12-15] MEDS: oxyCODONE HCL IR 5 MG TAB (IMMEDIATE RELEASE) PO PRN ×2 (14:45→20:06)
[2022-12-15] MEDS: MELATONIN 3 MG TAB PO SCH (20:06)
[2022-12-15] MEDS: ATORVASTATIN 40 MG TAB PO SCH (20:07)
[2022-12-15] MEDS: LIDOCAINE 5% 1 PATCH TD PRN (22:34)
[2022-12-16] MEDS: oxyCODONE HCL IR 5 MG TAB (IMMEDIATE RELEASE) PO PRN ×5 (00:38→23:29)
[2022-12-16] MEDS: ACETAMINOPHEN 325 MG TAB PO SCH ×4 (05:31→23:33)
--- NOTE | 2022-12-16 07:11 | Hospitalist Progress Note ---
Date of Service December 16, 2022 Assessment & Plan (1) Frequent falls: (2) Acute neck pain: (3) Cerebral palsy: (4) Neck pain on left side: (5) Anxiety disorder: (6) History of myocardial infarction: (7) Reactive depression: (8) Deafness: Plan Pt is a 72 yo deaf male with a past medical history significant for cerebral palsy who presents to the hospital on 12/14 for L lateral neck pain after fall 4 weeks ago. He lives at home with a roommate. #Acute neck pain - fall 4 weeks ago, CT of the head and cervical spine are negative for trauma on admission - PT and OT consulted; recommending home with home therapy and needs a shower chair - pt noting more pain today and 11/24 pain despite oxycodone use, - re-added morphine 2 mg IV prn for severe pain, continue oxycodone 5mg prn - will add prednisone 40 mg daily - will consult pain management #Anxiety disorder -Continue prn Xanax, Duloxetine #Cerebral palsy -Fall precautions #History of myocardial infarction -Continue ranolazine, aspirin and statin #Chronic obstructive pulmonary disease -Stable on RA -Lungs are clear -Incentive spirometry for now #Deafness - Continue to use home attendant for clear communication #Reactive depression - Continue Duloxetine Fall precautions ordered DVT PPX: SQ lovenox Diet: diet with aspiration precautions Admission and Anticipated Discharge Date Admission Date: December 14, 2022 Supervising Physician Co-Signing Physician Notes Attending attestation Pt seen and examined in concert with Dr. Sinha. In agreement with the documented findings as noted in the resident documentation with any exceptions or additions as noted here. Resting in bed with mild improvement on bilateral neck pain worse on the left. Previously reported that botox has worked for this pain in the past. On examination, S1/S2 nl RRR no MCG. CTAB. Abd NT/ND BS+ve. Bilateral shoulder spasm/pain L > R somewhat improved from previous examination. HTN - likely 2/2 pain vs. underlying worsening of HTN - will trial amlodpine 2.5mg as BP has been elevated all day regardless of status. Close monitoring. Intractable acute on chronic neck pain - continue oxycodone, added IV morphine PRN as noted, encourage use of PO medication over IV. Add PO steroid therapy. PT/OT consult appreciated. Pain mgmt consult for evaluation for procedural pain control/injection. Else see resident documentation as noted. Subjective Pt is a 72 yo deaf male with a past medical history significant for cerebral p alsy who presents to the hospital on 12/14 for L lateral neck pain after fall 4 weeks ago. Today, svp marketing was used and pt notes that his neck pain feels much worse today and the po pain medications do not seem to be doing enough. He states he is in 11/24 pain right now and is concerned that his pain will continue to be uncontrolled and is not sure why his pain has been only getting worse. No other complaints otherwise. Review of Systems Review of Systems: Cardio: denies chest pain, palpitations Resp: denies shortness of breath, Physical Exam Physical Exam: General:Alert and oriented, no acute distress but uncomfortable HEENT: Normocephalic, moist oral mucosa, Cardio: Regular rate and rhythm, Resp:Lungs clear to auscultation b/l, Skin: Warm, pink, dry, MSK: continued L paraspinal/cervical musculature spasticity Psych: Mood-affect congruence. Results & Data Results & Data Vital Signs (Past 12 Hours) Vital Signs Temp Pulse Resp BP BP Pulse Ox O2 Del Method 12/15/22 20:00 Room Air 12/16/22 01:59 147/70 H 12/15/22 22:39 36.3 C L 58 L 58 H 188/88 H 94 Room Air Resident Activity Tracking Resident Involvement: Resident Care Provided Care Provided: Adult Hospital Medicine (3) Cerebral palsy Cerebral palsy type: unspecified type Qualified Code(s): G80.9 - Cerebral palsy, unspecified
[2022-12-16] MEDS: BACLOFEN 10 MG TAB PO SCH ×2 (07:50→23:31)
[2022-12-16] MEDS: ASPIRIN 81 MG ECTAB PO SCH (07:50)
[2022-12-16] MEDS: RANOLAZINE 500 MG ER TAB PO SCH ×2 (07:50→23:31)
[2022-12-16] MEDS: ENOXAPARIN INJ 40 MG/0.4 ML SYR SQ SCH (07:50)
[2022-12-16] MEDS: DULoxetine HCL 30 MG CAP PO SCH (07:50)
[2022-12-16] MEDS ORDERED: MoRPHine SULFATE 2 MG/ML CARP IV PRN (09:06)
[2022-12-16] MEDS: predniSONE 20 MG TAB PO SCH (10:53)
[2022-12-16] MEDS ORDERED: amLODIPine BESYLATE 5 MG TAB PO ONE (16:19)
[2022-12-16] MEDS ORDERED: ONDANSETRON 4 MG OD TAB PO PRN (21:23)
[2022-12-16] MEDS: MELATONIN 3 MG TAB PO SCH (23:31)
[2022-12-16] MEDS: ATORVASTATIN 40 MG TAB PO SCH (23:32)
[2022-12-17] MEDS ORDERED: ONDANSETRON INJ 2 MG/ML 2 ML VIAL IV STA (01:03)
[2022-12-17] MEDS: LIDOCAINE 5% 1 PATCH TD PRN (01:19)
[2022-12-17] MEDS: PANTOprazole 40 MG TAB PO SCH (06:21)
[2022-12-17] MEDS: oxyCODONE HCL IR 5 MG TAB (IMMEDIATE RELEASE) PO PRN (06:21)
[2022-12-17] MEDS: ACETAMINOPHEN 325 MG TAB PO SCH ×3 (06:23→17:03)
--- NOTE | 2022-12-17 06:59 | Hospitalist Progress Note ---
Date of Service December 17, 2022 Assessment & Plan (1) Frequent falls: (2) Acute neck pain: (3) Cerebral palsy: (4) Neck pain on left side: (5) Anxiety disorder: (6) History of myocardial infarction: (7) Reactive depression: (8) Deafness: Plan Pt is a 72 yo deaf male with a past medical history significant for cerebral palsy who presents to the hospital on 12/14 for L lateral neck pain after fall 4 weeks ago. He lives at home with a roommate. #Acute neck pain - fall 4 weeks ago, CT of the head and cervical spine are negative for trauma on admission - PT and OT consulted; recommending home with home therapy and needs a shower chair - pt currently on morphine 2 mg IV prn for severe pain, along with oxycodone 5mg prn, last dose morphine last night - continue prednisone 40 mg daily for 5 days total - consulted pain management, awaiting recommendations #Elevated blood pressure - BP 180-200 systolic last evening, given 2.5 mg amlodipine - BP this morning 183/77, so will give 5 mg amlodipine daily #Anxiety disorder -Continue prn Xanax, Duloxetine #Cerebral palsy -Fall precautions #History of myocardial infarction -Continue ranolazine, aspirin and statin #Chronic obstructive pulmonary disease -Stable on RA -Lungs are clear -Incentive spirometry for now #Deafness - Continue to use inspecting engineer for clear communication #Reactive depression - Continue Duloxetine Fall precautions ordered DVT PPX: SQ lovenox Diet: HH diet with aspiration precautions Admission and Anticipated Discharge Date Admission Date: December 16, 2022 Supervising Physician Co-Signing Physician Notes Attending attestation Pt seen and examined in concert with Dr. Sinha. In agreement with the docum ented findings as noted in the resident documentation with any exceptions or additions as noted here. Resting in bed with mild improvement on bilateral neck pain worse on the left. Previously reported that botox has worked for this pain in the past. On examination, S1/S2 nl RRR no MCG. CTAB. Abd NT/ND BS+ve. Bilateral shoulder spasm/pain L > R somewhat improved from previous examination. HTN - likely 2/2 pain vs. underlying worsening of HTN - will trial amlodpine 2.5mg as BP has been elevated all day regardless of status. Close monitoring. Intractable acute on chronic neck pain - continue oxycodone, added IV morphine PRN as noted, encourage use of PO medication over IV. Add PO steroid therapy. PT/OT consult appreciated. Pain mgmt consult for evaluation for procedural pain control/injection. Else see resident documentation as noted. Subjective Pt is a 72 yo deaf male with a past medical history significant for cerebral palsy who presents to the hospital on 12/14 for L lateral neck pain after fall 4 weeks ago. Today, used an radio division captain to communicate with pt and he states he had a very bad night last night with multiple episodes of vomiting. He notes he has been okay this morning. He notes that his pain has improved since yesterday but he is still having significant pain. No further questions or concerns at this time. Review of Systems Review of Systems: Cardio: denies chest pain, palpitations Resp: denies shortness of breath, Physical Exam Physical Exam: General:Alert and oriented, no acute distress, sitting on end of bed HEENT: Normocephalic, moist oral mucosa, Cardio: Regular rate and rhythm, Resp:Lungs clear to auscultation b/l, Skin: Warm, pink, dry, MSK: continued L paraspinal/cervical musculature spasticity, but improved Psych: Mood-affect congruence. Results & Data Results & Data Vital Signs (Past 12 Hours) Vital Signs Temp Pulse Resp BP Pulse Ox O2 Del Method 12/16/22 22:00 Room Air 12/16/22 20:40 36.4 C L 69 20 217/86 H 94 Room Air (3) Cerebral palsy Cerebral palsy type: unspecified type Qualified Code(s): G80.9 - Cerebral palsy, unspecified
[2022-12-17] MEDS ORDERED: amLODIPine BESYLATE 5 MG TAB PO SCH (09:00)
[2022-12-17] MEDS: predniSONE 20 MG TAB PO SCH (09:29)
[2022-12-17] MEDS: DULoxetine HCL 30 MG CAP PO SCH (09:29)
[2022-12-17] MEDS: ASPIRIN 81 MG ECTAB PO SCH (09:29)
[2022-12-17] MEDS: BACLOFEN 10 MG TAB PO SCH (09:29)
[2022-12-17] MEDS: RANOLAZINE 500 MG ER TAB PO SCH (09:29)
[2022-12-17] MEDS ORDERED: FAMOTIDINE 20 MG TAB PO SCH (09:30)
[2022-12-17] MEDS: ENOXAPARIN INJ 40 MG/0.4 ML SYR SQ SCH (09:30)
[2022-12-17] MEDS ORDERED: DOCUSATE SODIUM 100 MG CAP PO ONE (11:26)
[2022-12-17] MEDS: POLYETHYLENE (MIRALAX) 17 GM PACK PO SCH ×2 (11:36→13:33)
--- NOTE | 2022-12-17 12:19 | Pain Management Consultation ---
Date of Consultation December 17, 2022 Assessment & Plan (1) Postlaminectomy syndrome, cervical: (2) Cervicalgia: (3) Cervical dystonia: (4) Myofascial pain: Plan 1. Patient has return of diffuse myofascial pain to his left side posterior shoulder region musculature in the setting of a prior extensive posterior cervical spine surgery. * Recommend a trial of repeat trigger point injections at today's visit and he was agreeable. * The risks, benefits, and alternatives of the procedure were discussed in detail with the patient, and in full understanding of the procedure to be performed, the patient elects to proceed as discussed. Written consent was obtained. * See the below procedure note for details. 2. Recommend PT/OT for gait/ambulation training, possible myofascial release techniques, and consideration of use of a TENS unit. They may need to determine if he is fit to be in his current living situation. 3. Continue baclofen 10 mg daily-twice daily as needed for spasm. Continue Cymbalta 30 mg daily. 4. Continue as needed PO oxycodone and IV morphine, but attempt to minimize use as able. 5. Patient may continue to follow with the pain management clinic in an outpatient status. At that time, we can further discuss attempting to order Botox again if he feels that was more effective. TRIGGER POINT INJECTION Diagnosis: Myofascial pain with spasm Side/Level injected: Left mid trapezius x1, left proximal trapezius x1, left cervical paravertebral x1, left superior rhomboid x1, left levator scapulae x1 Surgeon: Joshua Stanley PA-C Prior to starting, the Patients diagnosis and the procedure were reviewed with the patient in detail. Possible risks and complications including infection, bleeding, damage to surrounding structures and increased pain were discussed. Alternative therapies were also reviewed. Patients questions were answered and they agreed to proceed. Informed consent was obtained. Allergies and medication list was reviewed. The patient was brought to the procedure room and placed in sitting position. Immediately prior to starting the procedure, a ``time out was conducted with the staff and the patient where the patient was identified, proposed procedure was verified, consent was reviewed and the proper site for the planned procedure was identified. Patient was not given any intravenous sedation and constant verbal contact was maintained throughout the procedure. On examination, no signs of skin breakdown or infection were noted at the injection site. The site was cleansed with ChloraPrep. After the application of chloraprep, three minutes time elapsed prior to the start of the procedure to reduce risk of fire. Palpation over the site produced patients typical pain. Using an 1.5 inch 25-gauge needle, the above muscles were each injected in similar fashion, after negative aspiration for blood, with 2.0 mL of a combination of 7 mL of 0.5% ropivacaine containing 1 cc of 40 mg/mL of Kenalog and 2 cc of 30 mg/mL ketorolac without complication. Needle was withdrawn and hemostasis noted. Band-Aid was applied where needed. Patient tolerated the procedure uneventfully and he was monitored briefly afterwards and noted to be without complications. History of Present Illness Reason for Consultation: Recurrent neck/C-spine pain Attending Physician: Yoni Gan MD History of Present Illness Patient is a 72-year-old male who is well-known to the pain service with chronic complaints of axial neck pain with history of prior extensive cervical spine surgery. He has a significant history of cervical dystonia. Patient most recently underwent cervical trigger point injections on 10/14/2022. He reported about 25% pain relief at his post procedure phone interview on 10/20/2022. We had previously completed Botox myoneural injections most recently in 2020, which failed to provide any significant benefit of his chronic axial neck pain complaint. However, he does say that he likes Botox, but it is expensive. Per his roommate that was seen with him in the ED at [facility], where he presented on 12/14/2022, the patient has been experiencing falls more regularly. It seems that the patient has not been using a walker to ambulate, which she is supposed to be, especially when his roommate is not at home. Per the ED physician note yesterday: "Approximately 4 weeks ago he had a fall while ambulating due to slipping, he denies hitting his head or losing consciousness. He states that since that fall he has been having progressive, right sided neck pain. He denies headache, changes in vision, hearing, taste, and smell, new weakness or paresthesias, chest pain, SOB, abd pain, nausea, vomiting, diarrhea, dysuria, and hematuria. He denies any other pain since his fall. He feels as though he needs additional help at home when his roommate is at work. When his roommate is at home they are able to help him greatly" Today, the patient is stating his pain is only left-sided to the cervical paraspinal, trapezius, and rhomboid regions. He continues to have no radicular component of pain into either upper extremity. He describes aching and spasming. He denies cervicogenic headache component. Plan of care discussed with Dr. Nikki Lomeli. Pain Assessment Full Body Front + Back: 2 1. 2. 3. 4. Allergies Allergy/AdvReac Type Severity Reaction Status Date / Time No Known Allergies Allergy Verified 12/14/22 19:32 Home Medications Medication Instructions Recorded Confirmed Type acetaminophen 500 mg tablet 500 mg PO HS 12/29/17 12/14/22 History (Tylenol Extra Strength) aspirin 81 mg tablet,delayed 81 mg PO QAM 12/29/17 12/14/22 History release calcium carbonate 300 mg (750 mg) 300 mg PO QID PRN Acid Reflux 12/29/17 12/14/22 History chewable tablet (Tums E-X) Triflex 1 cap PO QAM 03/26/20 12/14/22 History cholecalciferol (vitamin D3) 50 2,000 unit PO QAM 03/26/20 12/14/22 History mcg (2,000 unit) tablet (Vitamin D3) coQ10 (ubiquinol) 200 mg capsule 200 mg PO QAM 03/26/20 12/14/22 History cyanocobalamin (vitamin B-12) 1,000 mcg PO QAM 03/26/20 12/14/22 History 1,000 mcg tablet (Vitamin B-12) vitamins A,C,Z-ytih-imogtj 4,296 1 cap PO QAM 03/26/20 12/14/22 History mcg-226 mg-90 mg capsule (PreserVision AREDS) nitroglycerin 0.4 mg sublingual 0.4 mg sublingual Q5M PRN Chest 07/08/21 12/14/22 Rx tablet (Nitrostat) Pain #30 tabs triamcinolone acetonide 0.1 % 1 applic topical BID PRN itching 08/08/21 12/14/22 Rx topical cream #30 grams duloxetine 30 mg capsule,delayed 30 mg PO DAILY #90 caps 12/04/21 12/14/22 Rx release calcipotriene-betamethasone 0.005 1 applic topical DAILY 4 weeks #60 02/23/22 12/14/22 Rx %-0.064 % topical ointment grams atorvastatin 80 mg tablet 80 mg PO HS #90 tabs 06/11/22 12/14/22 Rx meloxicam 7.5 mg tablet 7.5 mg PO DAILY #30 tabs 06/11/22 12/14/22 Rx glucosamine [id number] 1 tab PO DAILY 07/27/22 12/14/22 History yanira 1,500 mg-400 unit-100 mg tablet (Osteo Bi-Flex (5-Loxin)) ranolazine 500 mg tablet,extended 500 mg PO BID 09/04/22 12/14/22 History release,12 hr sildenafil 50 mg tablet (Viagra) 50 mg PO DAILY PRN Erectile 10/14/22 12/14/22 Rx Dysfunction #30 tabs acetaminophen 300 mg-codeine 30 mg 1 tab PO Q8H PRN pain #6 tabs 12/08/22 12/14/22 Rx tablet lidocaine 5 % topical patch 1 patch topical DAILY PRN pain #15 12/08/22 12/14/22 Rx ea alprazolam 0.5 mg tablet See Rx Instructions PO .COMPLEX 12/14/22 12/14/22 History PRN PRIOR TO PROCEDURE. baclofen 10 mg tablet 10 mg PO BID 12/14/22 12/14/22 History multivitamin 1 tab PO DAILY 12/14/22 12/14/22 History oxybutynin chloride 5 mg tablet 5 mg PO DAILY PRN Bladder Spasms 12/14/22 12/14/22 History pantoprazole 20 mg tablet,delayed 20 mg PO DAILYBB 12/14/22 12/14/22 History release Patient History Medical History (Updated 12/17/22 @ 12:14 by Joshua Stanley PA-C) Cervical radiculopathy Stomach ulcer Right knee pain Deafness complete--pt uses sign language to communicate Depressive psychosis Psoriasis Reactive depression Postlaminectomy syndrome Cervical History of myocardial infarction 2007--had a heart cath with 2 stents placed--follows with Dr. Allen Hypertension Hyperlipidemia Cerebral palsy Cervicalgia Cervical dystonia Anxiety disorder Surgical History (Updated 12/08/22 @ 10:36 by Sudhir Toscano MD) History of carpal tunnel surgery of left wrist History of bunionectomy of right great toe History of colonoscopy with polypectomy History of wisdom tooth extraction History of tooth extraction History of heart artery stent x2 2007 H/O laminectomy C3-C5 laminectomy and fixation C4-C6 performed by Dr. Marquez in 2004--limited ROM from left to right, limited ROM moving chin up H/O inguinal hernia repair H/O cardiac catheterization RCA MINI VISION stents x2 09/09/2007 Family History Brother Colorectal cancer Mother Hypertension Other Leukemia Denies family history of Ovarian cancer Prostate cancer Diabetes Hearing loss Coronary heart disease No family history of adverse response to anesthesia No family history of bleeding disorder Heart disease Allergies Myocardial infarction Breast cancer Cancer Stroke Asthma Social History Smoking Status: Former smoker Tobacco Type: Cigarettes Age Started Using Tobacco: 22; packs per day: 1; Cigarettes Per Day: 1 pack every 2 days; Second Hand Exposure: Yes (brother); Do You Dip or Chew Tobacco: No; Hx Alcohol Use: Yes Alcohol type: wine Alcohol Intake Frequency: Monthly or Less Hx Substance Use: No Preferred Language: Lithuanian Communication Ability: Effective Communication Ability Comment: needs an cellophane press operator Communication Tools: Writing Tablet, Physical Gestures and Lip Movement/Reading Visual Impairment: Limited Hearing Ability: Tax Accountant Required: Yes and Video Beliefs That Will Affect Care: None marital status: Single Current Living Situation: Other Current Living Situation Comment: roomate current occupational status: retired and disabled How many Children do You have: 0 Other Information That Helps Us Care for You: No Feels Safe at Home: No Is there a partner from a previous relationship who is making you feel unsafe now?: No Any Concerns about Your Family Situation: No Would You Like to Speak to Someone About Your Situation: No Safety Concerns: Feels Safe At This Time Childhood Exposure to Second-Hand Smoke: No Diet: regular caffeine: Yes (coffee and soda ) Dental Care, Regularly: No Physical Activity Frequency: Does not Exercise Seatbelt Use: always Sunscreen Use: No Assistive Devices: Cane, Hearing Aid - Bilateral and Walker
--- NOTE | 2022-12-17 15:27 | Discharge Summary ---
Date of Service December 17, 2022 Admission HPI Per Admitting Provider Arnav is a 72 year old male with a PMH significant for Cerebral Palsy, severe deafness (Uses sign language to communicate), recurrent falls, COPD, coronary artery disease, anemia, cervical dystonia status postlaminectomy in 2004, hypertension, hyperlipidemia, anxiety and depression who presented to the [facility] on 12/14 for recurrent falls and left neck pain. He remained stable in the ED. Labs including CBC and CMP were unremarkable. CT of the head was read as "No acute intracranial hemorrhage, midline shift, or mass effect.". CT of the cervical spine was read as "No cervical spine fracture. Posterior fusion, as described. Grade 2 anterolisthesis of C7 on T1, measures 6 mm.". Prior to admission the patient was given 8 mg IV morphine and a lidocaine patch. At the time of the exam the patient was lying in bed in no acute distress with his friend/roommate sitting bedside. 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 He states that he has a previous history of cervical fusion in 2004. Since his fusion he has been doing well and without significancy neck pain. He is supposed to use a walker/can for ambulation, especially when his roommate is not home. However, he has not been using his walker as much as he should. Approximately 4 weeks ago he had a fall while ambulating due to slipping, he denies hitting his head or losing consciousness. He states that since that fall he has been having progressive, right sided neck pain. He denies headache, changes in vision, hearing, taste, and smell, new weakness or paresthesias, chest pain, SOB, abd pain, nausea, vomiting, diarrhea, dysuria, and hematuria. He denies any other pain since his fall. He feels as though he needs additional help at home when his roommate is at work. When his roommate is at home they are able to help him greatly. We discussed code status, he is a full code. Please see Dr. Queen's attestation for any changes to the treatment plan Admission Exam Per Admitting Provider Physical Exam: General: In no acute distress, stated age, well-nourished, good hygiene HEENT: Normocephalic, atraumatic, no scleral icterus, pupils around round, symmetrical, and reactive to light, moist mucus membranes, trachea midline, no thyromegaly Chest/Pulm: No respiratory distress, symmetrical chest expansion, clear breath sounds throughout, no tenderness to palpation over the BL chest Cardiac: RRR, no murmurs noted Abdomen: Negative for ascites and bruising, normoactive bowel sounds, soft, non- tender to palpation throughout Musculoskeletal: Patient without acute trauma to inspection or palpation of the face or head. Previous surgical scar noted over the cervical spine which appears well healed, no tenderness to palpation over the cervical spine itself, pain over the left paraspinal muscles, otherwise no tenderness to palpation of the thoracic or lumbar spine, intact and symmetrical strength in the BL upper extremities, intact and symmetrical strength in the BL LE's Extremities: Radial, dorsalis pedis, and posterior tibial pulses are intact and symmetrical, no edema noted in the BL LE's Skin: Warm, dry, no rashes , lesions, or scars noted Neuro: Alert and oriented to person, place, month, year, and president, no focal defects, CN II-XII tested and intact, finger to nose test negative, no tremors noted Psych: No acute distress, calm and cooperative during the exam Principal Diagnosis Acute neck pain s/p fall Discharge Exam General:Alert and oriented, no acute distress, sitting on end of bed HEENT: Normocephalic, moist oral mucosa, Cardio: Regular rate and rhythm, Resp:Lungs clear to auscultation b/l, Skin: Warm, pink, dry, MSK: continued L paraspinal/cervical musculature spasticity, but improved Psych: Mood-affect congruence. Discharge Data Allergies Allergy/AdvReac Type Severity Reaction Status Date / Time No Known Allergies Allergy Verified 12/14/22 19:32 Consultations 12/14/22 19:50 ED Decision to Admit Stat 12/16/22 09:57 Consult Pain Management Routine Ordered Studies 12/14/22 19:05 CT cervical spine wo con Stat CT head/brain wo con Stat Hospital Course (1) Frequent falls: (2) Acute neck pain: (3) Cerebral palsy: (4) Neck pain on left side: (5) Anxiety disorder: (6) History of myocardial infarction: (7) Reactive depression: (8) Deafness: Plan Pt is a 72 yo deaf male with a past medical history significant for cerebral palsy who presents to the hospital on 12/14 for L lateral neck pain after fall 4 weeks ago. He lives at home with a roommate. Pt seen today and doing well. Had nausea and vomiting last night but started on famotidine and pantoprazole daily while on steroids and has felt well with no vomiting since. Will discharge home with remaining 3 doses of prednisone for a total of 5 days, along with 30 pills of oxycodone for 5 mg q4h. Will also send for famotidine and pantoprazole for duration of steroid therapy. Will also send home with amlodipine and recommend OP f/u with pcp for BP. Pt got physical script for PT eval + treat outpatient on discharge. #Acute neck pain - fall 4 weeks ago, CT of the head and cervical spine are negative for trauma on admission - PT and OT consulted; recommending home with home therapy and needs a shower chair - pt currently on morphine 2 mg IV prn for severe pain, along with oxycodone 5mg prn, last dose morphine last night - continue prednisone 40 mg daily for 5 days total - consulted pain management, recommend OP PT with MFR #Elevated blood pressure - BP 180-200 systolic last evening, given 2.5 mg amlodipine - BP this morning 183/77, so will give 5 mg amlodipine daily #Anxiety disorder -Continue prn Xanax, Duloxetine #Cerebral palsy -Fall precautions #History of myocardial infarction -Continue ranolazine, aspirin and statin #Chronic obstructive pulmonary disease -Stable on RA -Lungs are clear -Incentive spirometry for now #Deafness - Continue to use ip technology transactions attorney for clear communication #Reactive depression - Continue Duloxetine Fall precautions ordered DVT PPX: SQ lovenox Diet: HH diet with aspiration precautions Total Time Total Time Spent Total Time Spent (In Minutes): As per attending attestation. Discharge Plan Discharge Items Patient Disposition: Home - Self-Care Reason For Visit: FALLS, NECK PAIN Discharge Diagnosis: Acute neck pain s/p fall Condition on Discharge: Fair Activity: Per Instructions section Non-emergency contact: Primary Care Provider and Pain Management Call non-emergency contact if: you have any medication questions and your pain is not controlled Follow-up/Referrals: PCP,NO [Primary Care Provider] - Diet: Regular Addtl Attending Provider Instructions: You were admitted for acute neck pain and spasms after a recent fall. CT scans done of your head and neck showed no evidence of fractures, and your neck pain was treated with pain medication. As your pain has now become controlled on oral pain medications, we feel it is safe for you to return home. We have also placed an order for you to do outpatient physical therapy. Medications: Your medication list has been reviewed and reconciled upon discharge to ensure accuracy and continuity of care. An updated list of all your medications is included with your hospital discharge paperwork. Please review this list closely, and make note of any changes. We sent a new medication called Oxycodone to your pharmacy. Take Oxycodone 5 mg if needed for severe pain up to every 4 hours. Please try over the counter remedies first when possible. We sent a new medication called Pantoprazole to your pharmacy. Take Pantoprazole 40 mg daily while on the prednisone. This is an increase from your home dose of 20 mg every 48 hours/every other day. Once the prednisone is finished, you can resume your home dose of 20 mg every other day. Steroids can sometimes upset your stomach lining, so it is important to take this medication, along with famotidine, while on prednisone to decrease this irritation. We sent a new medication called Famotidine to your pharmacy. Take Famotidine 20 mg daily while on the prednisone. We sent a new medication called Prednisone to your pharmacy. Take Prednisone 40 mg daily for 3 days. This is a steroid to help with your pain. We sent a new medication called Amlodipine to your pharmacy. Take Amlodipine 5 mg daily. While you were admitted, we noticed that your blood pressure was very high, so we have added this agent to reduce it. You should follow-up with your primary care provider after discharge to assess your need for this medication or other medications to control your blood pressure. We sent a new medication called Miralax to your pharmacy. Take Miralax 17 g (1 cap) daily. This medication is for constipation. As this is a very safe medication, you can use 2-3 capfuls of medication if 1 cap is not helping to clear constipation. However, if you start to have prolonged nausea/vomiting with any oral intake, please go to the ER for further evaluation. If you have any issues filling these prescriptions, please call [phone] and ask to leave a message for Dr. Sinha. Take your medications as instructed; do not skip a dose of your medicines. Make sure all of your doctors know every medicine you are taking (including [id number]-flr-[id number] medicines, vitamins, and supplements). Call your primary care provider before taking any new medicines (including over- the-counter medicines, vitamins, and supplements), because some of these may interact with your current medications, or may make your symptoms worse. Tell your primary care provider if you cannot afford your medications. Activity: You can do normal everyday activities as your body allows. Take rest breaks if you feel tired. Do not overexert. Stop activity if you have pain, shortness of breath or feel dizzy. Follow-up appointments: Make an appointment with your primary care physician within one week of discharge. A copy of this summary will be sent to them. Every time you see your primary care physician, or any other doctor, bring your medication list, a list of questions, and your recent weights. CONTACT YOUR PRIMARY CARE PROVIDER if you experience any of the following: Shortness of breath or difficulty breathing Swelling of your feet, ankles, hands or abdomen Feeling tired with normal activity or experiencing dizziness or fainting Difficulty following your treatment plan, or difficulty taking medications CALL 911 OR GO TO THE EMERGENCY DEPARTMENT if you experience any of the following: Severe abdominal pain or nausea/vomiting Severe chest pain, or chest pain that radiates (moves) to your jaw or arm Sudden, severe shortness of breath or difficulty breathing Thank you for allowing us to participate in your care. Pending Studies at Discharge: No Stand-Alone Forms: My [facility] Medications and DC Order Prescriptions: New famotidine 20 mg tablet 20 mg PO DAILY Qty: 3 0RF pantoprazole 40 mg tablet,delayed release (DR/EC) 40 mg PO DAILY Qty: 3 0RF prednisone 20 mg tablet 40 mg PO DAILY Qty: 3 0RF amlodipine 5 mg tablet 5 mg PO DAILY Qty: 30 3RF polyethylene glycol 3350 [Miralax] 17 gram/dose powder 17 g PO DAILY Qty: 510 0RF oxycodone 5 mg tablet 5 mg PO Q4H PRN (Reason: pain) Qty: 30 0RF Continued acetaminophen [Tylenol Extra Strength] 500 mg tablet 500 mg PO HS aspirin 81 mg tablet,delayed release (DR/EC) 81 mg PO QAM calcium carbonate [Tums E-X] 300 mg (750 mg) tablet,chewable 300 mg PO QID PRN (Reason: Acid Reflux) triamcinolone acetonide 0.1 % cream 1 applic topical BID PRN (Reason: itching) Qty: 30 1RF calcipotriene-betamethasone 0.005-0.064 % ointment 1 applic topical DAILY 28 Days Qty: 60 3RF atorvastatin 80 mg tablet 80 mg PO HS Qty: 90 3RF meloxicam 7.5 mg tablet 7.5 mg PO DAILY Qty: 30 2RF sildenafil [Viagra] 50 mg tablet 50 mg PO DAILY PRN (Reason: Erectile Dysfunction) Qty: 30 5RF duloxetine 30 mg capsule,delayed release(DR/EC) 30 mg PO DAILY Qty: 90 3RF [id number] serr [Osteo Bi-Flex (5-Loxin)] 1,500-400-100 mg-unit-mg tablet 1 tab PO DAILY Rx Instructions: give after food/meal nitroglycerin [Nitrostat] 0.4 mg tablet, sublingual 0.4 mg SL Q5M PRN (Reason: Chest Pain) Qty: 30 3RF ranolazine 500 mg tablet extended release 12 hr 500 mg PO BID cyanocobalamin (vitamin B-12) [Vitamin B-12] 1,000 mcg Tablet 1,000 mcg PO QAM cholecalciferol (vitamin D3) [Vitamin D3] 50 mcg (2,000 unit) Tablet 2,000 unit PO QAM PreserVision AREDS [id number] Capsule 1 cap PO QAM coQ10 (ubiquinol) 200 mg Capsule 200 mg PO QAM Triflex 1 cap PO QAM lidocaine 5 % adhesive patch,medicated 1 patch TOP DAILY PRN (Reason: pain) Qty: 15 0RF Rx Instructions: leave on most painful area for 12 hrs multivitamin Tablet 1 tab PO DAILY pantoprazole 20 mg tablet,delayed release (DR/EC) 20 mg PO DAILYBB Rx Instructions: TAKE THIRTY MIN PRIOR TO FIRST MEAL alprazolam 0.5 mg tablet See Rx Instructions PO .COMPLEX PRN (Reason: PRIOR TO PROCEDURE.) Rx Instructions: Take 1 tablet orally 30 mins prior to procedure. Max 2 tablets/day.; baclofen 10 mg tablet 10 mg PO BID Rx Instructions: TAKE ONE TABLET BY MOUTH TWICE A DAY oxybutynin chloride 5 mg tablet 5 mg PO DAILY PRN (Reason: Bladder Spasms) Rx Instructions: TAKE ONE TABLET BY MOUTH DAILY NEEDED FOR BLADDER SPASMS Discontinued acetaminophen-codeine 300-30 mg tablet 1 tab PO Q8H PRN (Reason: pain) Qty: 6 0RF Discharge Orders: Discharge Order (Routine); Ordered 12/17/22 Ordered By: Kriss Sinha Admission Data Admit Date/Time: 12/16/22 15:28 Attending Provider: Yoni Gan Admit Provider: Molina Queen Primary Care Provider: PCP,NO Other Providers: Molina Queen; Nikki Lomeli Other Interventions: Discharge Summary Assessment (RN) Last Done: 12/17/22 15:20 Supervising Physician Co-Signing Physician Notes Attending attestation Pt seen and examined in concert with Dr. Sinha. In agreement with the documented findings as noted in the resident documentation with any exceptions or additions as noted here. Significant improvement in pain now 4-5/10 down from 10/10 and functioning well with good control with PO medication. On examination, S1/S2 nl RRR no MCG. CTAB. Abd NT/ND BS+ve. Bilateral shoulder spasm/pain L > R significantly improved from previous examination. HTN - likely 2/2 pain vs. underlying worsening of HTN - asymptomatic elevation with initiation of amlodipine 5mg. Recommended close follow up for re-evaluation and adjustment with primary care. Intractable acute on chronic neck pain - encourage APAP OTC and oxycodone q4h PRN for breakthrough. Pain mgmt consult appreciated - rec'd outpatient PT as ordered w/ myofascial techniques. Complete steroid burst w/ GI PPX Nausea/vomiting - episodic in the evening followed by administration of prednisone, now resolved. Increased PPI and added H2 therapy which controlled sx. Taper to outpatient dose following completion of steroid course Else see resident documentation as noted. Total attending physician time spent with this patient's care on the day of discharge: 40 minutes. Resident Activity Tracking Resident Involvement: Resident Care Provided Care Provided: Adult Hospital Medicine
[2022-12-18] MEDS ORDERED: PANTOprazole 40 MG TAB PO SCH (07:30)
== END 2022-12-17 19:07 | disposition home or self-care (01) | DRG 552 ==
LOC: ED 15:44 → EDINP 15:44 → SUATTDRO 20:55 → 3E 21:37

== ENCOUNTER 2022-12-27 08:26 | Observation (INO) ==
[2022-12-27 10:10] LABS: Basophils # (auto) 0.09 K/uL (0.00-0.20); Basophils % (auto) 0.9 %; Hemoglobin 14.1 g/dl (14.0-18.0); Lymphocytes # (auto) 2.13 K/uL (1.20-3.40); Lymphocytes % (auto) 20.9 %; Mean Corpuscular Hgb Conc 33.6 g/dL (32.0-36.0); Mean Corpuscular Volume 95.2 fL (80.0-100.0); Mean Platelet Volume 9.2 fL (9.4-12.4); Monocytes # (auto) 1.01 K/uL (0.11-0.59); Monocytes % (auto) 9.9 %; Neutrophils # (auto) 6.65 K/uL (1.40-6.50); Neutrophils % (auto) 65.3 %; Platelet Count 349 K/uL (130-400); RDW Coefficient of Variation 12.2 % (11.5-14.5); RDW Standard Deviation 42.8 fL (36.4-46.3); Red Blood Count 4.41 M/uL (4.70-6.10); White Blood Count 10.18 K/ul (4.8-10.8)
[2022-12-27] MEDS ORDERED: ONDANSETRON INJ 2 MG/ML 2 ML VIAL IV STA (10:14)
[2022-12-27] MEDS ORDERED: MoRPHine SULFATE 4 MG/ML 1 ML CARP\\VIAL IV STA (10:14)
--- NOTE | 2022-12-27 10:16 | Emergency Department Note ---
Impression & Plan Chest pain ADMIT ED Provider Note HPI: History obtained from patient. The patient is a 72-year-old gentleman with history of coronary artery disease, status post stent placement in 2007, presents emergency department with chief complaint of chest pain. Patient states his pain is been ongoing for the past several hours since he woke up this morning. Patient denies any nausea or vomiting, denies any shortness of breath. On arrival here to the ED the patient is hypertensive but otherwise hemodynamically stable. Of note, patient is deaf and assistance of iPad fpga design engineer services utilized to obtain history. Patient does have a friend at the bedside who also assist with history. ROS: - Per HPI Differential Diagnosis: Acute coronary syndrome, acute gastritis, esophagitis, esophageal spasms, pulmonary embolism, aortic dissection, pneumothorax, amongst other potential pathologies. *Outpatient medications and allergy history reviewed. *Pertinent external medical records reviewed PE: General: Alert HEENT: Normocephalic, trachea midline Eyes: Extraocular eye movement is intact, no scleral erythema Pulmonary: Clear to auscultation bilaterally, no wheezing Cardio: Regular rate and rhythm GI: Abdomen is soft to palpation : No suprapubic tenderness MSK: No evidence of trauma or malformation of the extremities, no edema Skin: No evidence of rash Neuro: Alert, no focal deficits Psychiatric: Cooperative INDEPENDENT INTERPRETATIONS: monitoring engineer: (As interpreted by myself): - An order was placed for continuous cardiac monitoring - Patient was noted to be in sinus rhythm with a rate of 58 EKG: (As interpreted by myself): Rate: 47 Rhythm: Sinus bradycardia Intervals: Within normal limits ST changes: No ST elevation Time: 0839 Interventions provided in ED: -IV morphine, IV Zofran, GI cocktail, asked Medical Decision Making: Patient presented to the emergency department chest pain, IV was established lab work obtained, patient was placed on awake overnight monitor. Patient was given IV morphine and IV Zofran for his symptoms. EKG per my interpretation shows sinus bradycardia without any acute ischemic changes. Lab work shows no leukocytosis, hemoglobin is normal, platelet count is normal, CMP does not show any critical findings, troponin is negative x1. Chest x-ray does not show any evidence of acute disease. I discussed all the above findings with the patient utilizing the cardiology fellow service, at this time I think given the patient's history of coronary artery disease with multiple stents in the setting of chest pain that is now improved with IV morphine, he should be admitted to the hospitalist service for further management and observation. Patient and his friend at the bedside are in agreement to this plan. Case was discussed with the on-call hospitalist, Dr. Garces, and the patient was placed for admission in stable condition. Consultants/Discussions held with other healthcare providers: -Hospitalist, Dr. Garces Disposition discussion held by myself with: -Patient and friend at bedside Diagnosis: 1. Chest pain, acute 2. History of coronary artery disease, status post multiple stent Disposition: Admission Adal Baird DO Emergency Medicine Past Med/Surg History Medical History (Updated 12/27/22 @ 14:56 by Adal Baird DO) GERD (gastroesophageal reflux disease) Cervical radiculopathy Stomach ulcer Right knee pain Deafness complete--pt uses sign language to communicate Depressive psychosis Psoriasis Reactive depression Postlaminectomy syndrome Cervical History of myocardial infarction 2007--had a heart cath with 2 stents placed--follows with Dr. Allen Hypertension Hyperlipidemia Cerebral palsy Cervicalgia Cervical dystonia Anxiety disorder Surgical History (Updated 12/23/22 @ 00:11 by Solo Echeverria) History of carpal tunnel surgery of left wrist History of bunionectomy of right great toe History of colonoscopy with polypectomy History of wisdom tooth extraction History of tooth extraction History of heart artery stent x2 2007 H/O laminectomy C3-C5 laminectomy and fixation C4-C6 performed by Dr. Marquez in 2004--limited ROM from left to right, limited ROM moving chin up H/O inguinal hernia repair H/O cardiac catheterization RCA MINI VISION stents x2 09/09/2007 Family History Brother Colorectal cancer Mother Hypertension Other Leukemia Denies family history of Ovarian cancer Prostate cancer Diabetes Hearing loss Coronary heart disease No family history of adverse response to anesthesia No family history of bleeding disorder Heart disease Allergies Myocardial infarction Breast cancer Cancer Stroke Asthma Social History Smoking Status: Former smoker Tobacco Type: Cigarettes Age Started Using Tobacco: 22; packs per day: 1; Cigarettes Per Day: 1 pack every 2 days; Second Hand Exposure: Yes (brother); Do You Dip or Chew Tobacco: No; Hx Alcohol Use: Yes Alcohol type: wine Alcohol Intake Frequency: Monthly or Less Hx Substance Use: No Preferred Language: Latvian Communication Ability: Effective Communication Ability Comment: needs an cardiology fellow Communication Tools: IPad, Writing Tablet and Lip Movement/Reading Visual Impairment: Limited Hearing Ability: Offset Second Press Operator Required: Yes and Video Beliefs That Will Affect Care: None marital status: Single Current Living Situation: Other Current Living Situation Comment: roomate current occupational status: retired and disabled How many Children do You have: 0 Feels Safe at Home: Yes Childhood Exposure to Second-Hand Smoke: No Diet: regular caffeine: Yes (coffee and soda ) Dental Care, Regularly: No Physical Activity Frequency: Does not Exercise Seatbelt Use: always Sunscreen Use: No Assistive Devices: Cane, Hearing Aid - Bilateral and Walker Allergies Allergies Allergy/AdvReac Type Severity Reaction Status Date / Time No Known Allergies Allergy Verified 12/24/22 09:45 Home Meds Home Medications Medication Instructions Recorded Confirmed acetaminophen 500 mg tablet 500 mg PO HS 12/29/17 12/18/22 (Tylenol Extra Strength) calcium carbonate 300 mg (750 mg) 300 mg PO QID PRN Acid Reflux 12/29/17 12/18/22 chewable tablet (Tums E-X) Triflex 1 cap PO QAM 03/26/20 12/18/22 cholecalciferol (vitamin D3) 50 2,000 unit PO QAM 03/26/20 12/18/22 mcg (2,000 unit) tablet (Vitamin D3) coQ10 (ubiquinol) 200 mg capsule 200 mg PO QAM 03/26/20 12/18/22 cyanocobalamin (vitamin B-12) 1,000 mcg PO QAM 03/26/20 12/18/22 1,000 mcg tablet (Vitamin B-12) vitamins A,C,[id number]-xyiy-ycdtkh 4,296 1 cap PO QAM 03/26/20 12/18/22 mcg-226 mg-90 mg capsule (PreserVision AREDS) glucosamine [id number] 1 tab PO DAILY 07/27/22 12/18/22 yanira 1,500 mg-400 unit-100 mg tablet (Osteo Bi-Flex (5-Loxin)) ranolazine 500 mg tablet,extended 500 mg PO BID 09/04/22 12/27/22 release,12 hr baclofen 10 mg tablet 10 mg PO BID 12/14/22 12/27/22 multivitamin 1 tab PO DAILY 12/14/22 12/18/22 oxybutynin chloride 5 mg tablet 5 mg PO DAILY PRN Bladder Spasms 12/14/22 12/27/22 nitroglycerin 0.4 mg sublingual 0 mg sublingual Q5M PRN Chest Pain 12/27/22 tablet (Nitrostat) triamcinolone acetonide 0.1 % 0 applic topical BID PRN itching 12/27/22 12/27/22 topical cream Previous Rx's Medication Instructions Recorded calcipotriene-betamethasone 0.005 1 applic topical DAILY 4 weeks #60 02/23/22 %-0.064 % topical ointment grams atorvastatin 80 mg tablet 80 mg PO HS #90 tabs 06/11/22 sildenafil 50 mg tablet (Viagra) 50 mg PO DAILY PRN Erectile 10/14/22 Dysfunction #30 tabs lidocaine 5 % topical patch 1 patch topical DAILY PRN pain #15 12/08/22 ea oxycodone 5 mg tablet 5 mg PO Q4H PRN pain #30 tabs 12/17/22 polyethylene glycol 3350 17 17 g PO DAILY #510 grams 12/17/22 gram/dose oral powder (Miralax) Wheeled Walker #1 ea 12/23/22 duloxetine 30 mg capsule,delayed 30 mg PO DAILY #90 caps 12/24/22 release famotidine 20 mg tablet 20 mg PO DAILY #30 tabs 12/24/22 pantoprazole 40 mg tablet,delayed 40 mg PO DAILY #30 tabs 12/24/22 release Results & Data (ED) Vital Signs Vital Signs - 24 hr 12/27/22 08:30 12/27/22 09:51 12/27/22 10:35 Temperature 36.3 C L Temperature Source Temporal Artery Scan Pulse Rate 53 L 45 L Respiratory Rate 18 Blood Pressure 170/98 H Blood Pressure Mean 122 Pulse Oximetry 97 Oxygen Delivery Method Room Air Room Air Sepsis Recent Fever Within 48 Hours No Sepsis New/Unexplained Change in Mental Status No Sepsis Action Taken by Nursing No Action Required 12/27/22 14:28 Temperature Temperature Source Pulse Rate 53 L Respiratory Rate Blood Pressure Blood Pressure Mean Pulse Oximetry Oxygen Delivery Method Sepsis Recent Fever Within 48 Hours Sepsis New/Unexplained Change in Mental Status Sepsis Action Taken by Nursing Laboratory Data 12/27/22 09:55 12/27/22 09:55 Lab Results 12/27/22 12/27/22 Range/Units 09:55 12:41 WBC 10.18 (4.8-10.8) K/ul RBC 4.41 L (4.70-6.10) M/uL Hgb 14.1 (14.0-18.0) g/dl Hct 42.0 (42.0-52.0) % MCV 95.2 (80.0-100.0) fL MCH 32.0 (25.0-34.0) pg MCHC 33.6 (32.0-36.0) g/dL RDW Std Deviation 42.8 (36.4-46.3) fL RDW Coeff of Aashish 12.2 (11.5-14.5) % Plt Count 349 (130-400) K/uL MPV 9.2 L (9.4-12.4) fL Immature Gran % (Auto) 2.0 % Neut % (Auto) 65.3 % Lymph % (Auto) 20.9 % [place] % (Auto) 9.9 % Eos % (Auto) 1.0 % Baso % (Auto) 0.9 % Neut # (Auto) 6.65 H (1.40-6.50) K/uL Lymph # (Auto) 2.13 (1.20-3.40) K/uL [place] # (Auto) 1.01 H (0.11-0.59) K/uL Eos # (Auto) 0.10 (0.00-0.50) K/uL Baso # (Auto) 0.09 (0.00-0.20) K/uL Immature Gran # (Auto) 0.20 (0.01-0.20) K/uL PT 10.3 (9.0-12.0) Seconds INR 0.9 (0.9-1.1) APTT 26.7 (21.0-31.0) Seconds PTT Ratio 0.9 Sodium 140 (136-145) mmol/L Potassium 4.2 (3.5-5.1) mmol/L Chloride 105 (98-107) mmol/L Carbon Dioxide 28 (21-32) mmol/L Anion Gap 7 (3-11) BUN 19 (6-23) mg/dl Creatinine 0.91 (0.6-1.4) mg/dl Est Cr Clr Drug Dosing 65.3 ml/min Est GFR ( Amer) 98.6 ml/min Est GFR (Non-Af Amer) 85.1 ml/min BUN/Creatinine Ratio 20.9 H (10-20) Glucose 85 (70-99(Fasting)) mg/dl Calcium 9.6 (8.6-10.3) mg/dl Total Bilirubin 0.7 (0.2-1.0) mg/dl AST 20 (13-39) U/L ALT 26 (7-52) U/L Alkaline Phosphatase 65 (34-104) U/L Troponin I High Sens 5.9 6.4 (0-20) pg/ml Total Protein 7.0 (6.0-8.3) gm/dl Albumin 4.4 (3.4-5.0) gm/dl Globulin 2.6 (2.5-4.0) gm/dl Albumin/Globulin Ratio 1.7 (0.9-2) Administered Medications Discontinued Medications Al Hydrox/Mg Hydrox/Simethicone (Aluminum/Magnesium Susp 30 Ml Udc) 15 ml PO NOW STA Stop: 12/27/22 11:06 Last Admin: 12/27/22 11:59 Dose: 15 ml Documented By: EUNICE Aspirin (Aspirin Chew 324 Mg) 324 mg PO NOW STA Stop: 12/27/22 11:41 Last Admin: 12/27/22 11:59 Dose: 324 mg Documented By: EUNICE Famotidine (Famotidine 20 Mg Tab) 20 mg PO NOW ONE Stop: 12/27/22 12:53 Last Admin: 12/27/22 13:39 Dose: 20 mg Documented By: EUNICE Morphine Sulfate (Morphine Sulfate 4 Mg/Ml 1 Ml Carp\Vial) 4 mg IV NOW STA Stop: 12/27/22 10:15 Last Admin: 12/27/22 10:23 Dose: 4 mg Documented By: EUNICE Ondansetron HCl (Ondansetron Inj 2 Mg/Ml 2 Ml Vial) 4 mg IV NOW STA Stop: 12/27/22 10:15 Last Admin: 12/27/22 10:23 Dose: 4 mg Documented By: EUNICE Ranolazine (Ranolazine 500 Mg Er Tab) 500 mg PO NOW STA Stop: 12/27/22 12:53 Last Admin: 12/27/22 13:39 Dose: 500 mg Documented By: EUNICE Imaging Data Radiologist's Impression: Chest X-Ray 12/27/22 08:42 XR chest 1V portable HISTORY: Chest pain, nonspecific COMPARISON: Chest 12/14/2022. FINDINGS: No pneumothorax. No pleural effusions. The lungs are clear. The heart is normal in size. Cervical spinal fusion hardware is partially visualized. No acute fractures. A right coronary artery stent is noted. Mild emphysema. IMPRESSION: No significant change compared to the prior study. No acute process. ACT 112: Negative or not required by law. Electronically signed by: Sanjay Frye M.D. 12/27/2022 10:17 AM Discharge Plan Visit Data Chief Complaint: Chest Pain Stated Complaint: CHEST PAIN, HYPERTENSION ED Provider: Adal Baird Discharge Problem: Chest pain Forms Stand Alone Forms: [employer] Prescriptions Prescriptions: No Action acetaminophen [Tylenol Extra Strength] 500 mg tablet 500 mg PO HS calcium carbonate [Tums E-X] 300 mg (750 mg) tablet,chewable 300 mg PO QID PRN (Reason: Acid Reflux) calcipotriene-betamethasone 0.005-0.064 % ointment 1 applic topical DAILY 28 Days Qty: 60 3RF atorvastatin 80 mg tablet 80 mg PO HS Qty: 90 3RF sildenafil [Viagra] 50 mg tablet 50 mg PO DAILY PRN (Reason: Erectile Dysfunction) Qty: 30 5RF (DME) Wheeled Walker Misc See Rx Instructions .Route Qty: 1 0RF Rx Instructions: 4 wheeled walker w/ seat & hand brakes duloxetine 30 mg capsule,delayed release(DR/EC) 30 mg PO DAILY Qty: 90 3RF famotidine 20 mg tablet 20 mg PO DAILY Qty: 30 2RF pantoprazole 40 mg tablet,delayed release (DR/EC) 40 mg PO DAILY Qty: 30 1RF [id number] serr [Osteo Bi-Flex (5-Loxin)] 1,500-400-100 mg-unit-mg tablet 1 tab PO DAILY Rx Instructions: give after food/meal ranolazine 500 mg tablet extended release 12 hr 500 mg PO BID Rx Instructions: 9-11 cyanocobalamin (vitamin B-12) [Vitamin B-12] 1,000 mcg Tablet 1,000 mcg PO QAM cholecalciferol (vitamin D3) [Vitamin D3] 50 mcg (2,000 unit) Tablet 2,000 unit PO QAM PreserVision AREDS 14,320-226-200 [id number] Capsule 1 cap PO QAM coQ10 (ubiquinol) 200 mg Capsule 200 mg PO QAM Triflex 1 cap PO QAM triamcinolone acetonide 0.1 % cream 0 applic topical BID PRN (Reason: itching) Rx Instructions: no active script with pharmacy nitroglycerin [Nitrostat] 0.4 mg tablet, sublingual 0 mg SL Q5M PRN (Reason: Chest Pain) Rx Instructions: no record lidocaine 5 % adhesive patch,medicated 1 patch TOP DAILY PRN (Reason: pain) Qty: 15 0RF Rx Instructions: leave on most painful area for 12 hrs multivitamin Tablet 1 tab PO DAILY baclofen 10 mg tablet 10 mg PO BID Rx Instructions: TAKE ONE TABLET BY MOUTH TWICE A DAY oxybutynin chloride 5 mg tablet 5 mg PO DAILY PRN (Reason: Bladder Spasms) Rx Instructions: TAKE ONE TABLET BY MOUTH DAILY NEEDED FOR BLADDER SPASMS polyethylene glycol 3350 [Miralax] 17 gram/dose powder 17 g PO DAILY Qty: 510 0RF oxycodone 5 mg tablet 5 mg PO Q4H PRN (Reason: pain) Qty: 30 0RF Referrals Referrals: Sumanth Etienne CRNP [Primary Care Provider] -
--- NOTE | 2022-12-27 10:18 | XRay Report ---
XR chest 1V portable HISTORY: Chest pain, nonspecific COMPARISON: Chest 12/14/2022. FINDINGS: No pneumothorax. No pleural effusions. The lungs are clear. The heart is normal in size. Ce rvical spinal fusion hardware is partially visualized. No acute fractures. A right coronary artery st ent is noted. Mild emphysema. IMPRESSION: No significant change compared to the prior study. No acute process. ACT 112: Negative or not required by law. Electronically signed by: Sanjay Frye M.D. 12/27/2022 10:17 AM
[2022-12-27 10:31] LABS: Albumin Globulin Ratio 1.7 (0.9-2); Albumin Level 4.4 gm/dl (3.4-5.0); BUN Creatinine Ratio 20.9 (10-20); Bilirubin,Total 0.7 mg/dl (0.2-1.0); Calcium 9.6 mg/dl (8.6-10.3); Creatinine Clr Calc Pharmacy 65.3 ml/min; Est GFR (African American) 98.6 ml/min; Est GFR (Non-African American) 85.1 ml/min; Globulin 2.6 gm/dl (2.5-4.0); Potassium 4.2 mmol/L (3.5-5.1)
[2022-12-27 10:37] LABS: Troponin I High Sensitivity 5.9 pg/ml (0-20)
[2022-12-27 10:43] LABS: INR 0.9 (0.9-1.1); Partial Thromboplastin Ratio 0.9; Partial Thromboplastin Time 26.7 Seconds (21.0-31.0); Prothrombin Time 10.3 Seconds (9.0-12.0)
[2022-12-27] MEDS ORDERED: ALUMINUM/MAGNESIUM SUSP 30 ML UDC PO STA (11:05)
[2022-12-27] MEDS ORDERED: ASPIRIN CHEW 324 MG PO STA (11:40)
--- NOTE | 2022-12-27 12:00 | History & Physical Report ---
Date of Service December 27, 2022 Assessment & Plan (1) Chest pain: Plan: Burning 11/24 chest pain developed the morning of 12/27 Troponin WNL x2 Electrolytes WNL EKG with sinus bradycardia at 47 bpm; prior EKG for comparison was in 03/2017 CXR NAF Chest pain somewhat improved in the ED following morphine administration Continuous telemetry monitoring Continue ranolazine 500 mg twice daily; QTc 423; monitor for QTc prolongation with ranolazine use Nitrostat 0.4mg SL x3 max doses as needed for acute angina A.m. 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 q4h as needed for left neck pain (6) History of myocardial infarction: Plan: In 2007 w/ stents placed x2 Follows with Dr. Allen Per patient, he is not on any antiplatelet or anticoagulation therapy (7) Hyperlipidemia: Plan: Continue atorvastatin (8) GERD (gastroesophageal reflux disease): Plan: Continue pantoprazole, famotidine Plan [facility] Full code AHA diet (aspiration precautions) VTE PPx: Lovenox 40 mg SQ q24h History of Present Illness Chief Complaint: Chest pain Primary Care Provider: SIMON Washington Arnav is a 72-year-old male with PMH of deafness (uses sign language to communicate), recurrent falls, cerebral palsy, CAD s/p stent placement with last in 2007, HLD, HTN, MD, psoriasis, anxiety, and depression. He presented for burning chest pain 11/24 on the morning of 12/27 at 0500. The chest pain woke him from sleep. History was obtained using ALS services, with additional history from the patient's friend (Sowmya) who is at the bedside. Hx of MD in 2007 with 2 stents placed. Patient recently admitted to [facility] for falls. No falls since discharge, per patient. He describes the chest pain as "squeezing" substernal chest pain. He denies radiation to the left arm or back. He endorses left neck pain which has been ongoing. He takes oxycodone 5 mg twice daily for the pain, as well as Tylenol. Patient reports that he quit smoking tobacco cigarettes 4 months ago; used to smoke 1 pack every 3 days. He reports that his BP medications were stopped outpatient on 12/24. Despite having stents, he is not on any blood thinners or antiplatelets. He did not take his morning medications. Hypertensive at 170/98 on arrival, and bradycardic at 45 bpm. ED course: Morphine sulfate 4 mg IV Zofran 4 mg IV Aspirin 324 mg p.o. Maalox 15 mL p.o. ROS: Patient endorses substernal chest pain, abdominal pain (which he attributes to SQ shots), and some diarrhea. Patient denies fevers, MENEZES, pleuritic CP, cough, hemoptysis, SOB, N/V, blood in stool or urine, or numbness/tingling in legs. Allergies Allergy/AdvReac Type Severity Reaction Status Date / Time No Known Allergies Allergy Verified 12/24/22 09:45 Home Medications Medication Instructions Recorded Confirmed Type acetaminophen 500 mg tablet 500 mg PO HS 12/29/17 12/18/22 History (Tylenol Extra Strength) calcium carbonate 300 mg (750 mg) 300 mg PO QID PRN Acid Reflux 12/29/17 12/18/22 History chewable tablet (Tums E-X) Triflex 1 cap PO QAM 03/26/20 12/18/22 History cholecalciferol (vitamin D3) 50 2,000 unit PO QAM 03/26/20 12/18/22 History mcg (2,000 unit) tablet (Vitamin D3) coQ10 (ubiquinol) 200 mg capsule 200 mg PO QAM 03/26/20 12/18/22 History cyanocobalamin (vitamin B-12) 1,000 mcg PO QAM 03/26/20 12/18/22 History 1,000 mcg tablet (Vitamin B-12) vitamins A,C,U-yahj-wnbagt 4,296 1 cap PO QAM 03/26/20 12/18/22 History mcg-226 mg-90 mg capsule (PreserVision AREDS) calcipotriene-betamethasone 0.005 1 applic topical DAILY 4 weeks #60 02/23/22 12/27/22 Rx %-0.064 % topical ointment grams atorvastatin 80 mg tablet 80 mg PO HS #90 tabs 06/11/22 12/27/22 Rx glucosamine [id number] 1 tab PO DAILY 07/27/22 12/18/22 History yanira 1,500 mg-400 unit-100 mg tablet (Osteo Bi-Flex (5-Loxin)) ranolazine 500 mg tablet,extended 500 mg PO BID 09/04/22 12/27/22 History release,12 hr sildenafil 50 mg tablet (Viagra) 50 mg PO DAILY PRN Erectile 10/14/22 12/27/22 Rx Dysfunction #30 tabs lidocaine 5 % topical patch 1 patch topical DAILY PRN pain #15 12/08/22 12/27/22 Rx ea baclofen 10 mg tablet 10 mg PO BID 12/14/22 12/27/22 History multivitamin 1 tab PO DAILY 12/14/22 12/18/22 History oxybutynin chloride 5 mg tablet 5 mg PO DAILY PRN Bladder Spasms 12/14/22 12/27/22 History oxycodone 5 mg tablet 5 mg PO Q4H PRN pain #30 tabs 12/17/22 12/27/22 Rx polyethylene glycol 3350 17 17 g PO DAILY #510 grams 12/17/22 12/27/22 Rx gram/dose oral powder (Miralax) Mireille Walker #1 ea 12/23/22 Rx duloxetine 30 mg capsule,delayed 30 mg PO DAILY #90 caps 12/24/22 12/27/22 Rx release famotidine 20 mg tablet 20 mg PO DAILY #30 tabs 12/24/22 12/27/22 Rx pantoprazole 40 mg tablet,delayed 40 mg PO DAILY #30 tabs 12/24/22 12/27/22 Rx release nitroglycerin 0.4 mg sublingual 0 mg sublingual Q5M PRN Chest Pain 12/27/22 History tablet (Nitrostat) triamcinolone acetonide 0.1 % 0 applic topical BID PRN itching 12/27/22 12/27/22 History topical cream Past Med/Surg History Medical History (Updated 11/12/23 @ 14:56 by Adal Baird DO) GERD (gastroesophageal reflux disease) Cervical radiculopathy Stomach ulcer Right knee pain Deafness complete--pt uses sign language to communicate Depressive psychosis Psoriasis Reactive depression Postlaminectomy syndrome Cervical History of myocardial infarction 2007--had a heart cath with 2 stents placed--follows with Dr. Allen Hypertension Hyperlipidemia Cerebral palsy Cervicalgia Cervical dystonia Anxiety disorder Surgical History (Updated 12/23/22 @ 00:11 by Solo Echeverria) History of carpal tunnel surgery of left wrist History of bunionectomy of right great toe History of colonoscopy with polypectomy History of wisdom tooth extraction History of tooth extraction History of heart artery stent x2 2007 H/O laminectomy C3-C5 laminectomy and fixation C4-C6 performed by Dr. Marquez in 2004--limited ROM from left to right, limited ROM moving chin up H/O inguinal hernia repair H/O cardiac catheterization RCA [facility]ISION stents x2 09/09/2007 Family History Brother Colorectal cancer Mother Hypertension Other Leukemia Denies family history of Ovarian cancer Prostate cancer Diabetes Hearing loss Coronary heart disease No family history of adverse response to anesthesia No family history of bleeding disorder Heart disease Allergies Myocardial infarction Breast cancer Cancer Stroke Asthma Social History Smoking Status: Former smoker Tobacco Type: Cigarettes Age Started Using Tobacco: 22; packs per day: 1; Cigarettes Per Day: 1 pack every 2 days; Second Hand Exposure: Yes (brother); Do You Dip or Chew Tobacco: No; Hx Alcohol Use: Yes Alcohol type: wine Alcohol Intake Frequency: Monthly or Less Hx Substance Use: No Preferred Language: Mongolian Communication Ability: Effective Communication Ability Comment: needs an deployment engineer Communication Tools: IPad, Writing Tablet and Lip Movement/Reading Visual Impairment: Limited Hearing Ability: Head Shipper Required: Yes and Video Beliefs That Will Affect Care: None marital status: Single Current Living Situation: Other Current Living Situation Comment: roomate current occupational status: retired and disabled How many Children do You have: 0 Feels Safe at Home: Yes Childhood Exposure to Second-Hand Smoke: No Diet: regular caffeine: Yes (coffee and soda ) Dental Care, Regularly: No Physical Activity Frequency: Does not Exercise Seatbelt Use: always Sunscreen Use: No Assistive Devices: Cane, Hearing Aid - Bilateral and Walker Review of Systems Review of Systems: See HPI above Physical Exam Physical Exam: General: no acute distress; non-toxic appearing; cachectic in appearance; cooperative HEENT: normocephalic, atraumatic; no scleral icterus; PERRLA w/ EOMs intact; dry mucus membrane, with multiple teeth missing; patient is deaf and communicates via sign language Neck: supple; no lymphadenopathy; trachea midline Skin: warm, dry without signs of tenting; no cyanosis; no rashes, bruising, l esions, or erythema noted CV: chest wall NTP; bradycardic, regular rhythm at 45 bpm; S1/S2 normal; no murmurs/rubs/gallops; pulses intact and symmetric at radial, DP, and PT Lungs: no acute respiratory distress; symmetrical chest wall expansion; clear breath sounds across all lung negrete w/o adventitious sounds; no wheezing ABD: Soft, NTP; BS present; no rebound/guarding MSK: no tics or fasciculations; no edema noted in the LEs b/l; patient demonstrates ability to wiggle toes Neuro: A&Ox3; normal mood and affect; no focal deficits; sensation intact in the LEs B/L Results & Data Results & Data Vital Signs (Past 12 Hours) Vital Signs Temp Pulse Resp BP Pulse Ox O2 Del Method 12/27/22 10:35 45 L 12/27/22 09:51 Room Air 12/27/22 08:30 36.3 C L 53 L 18 170/98 H 97 Room Air Laboratory Results Abnormal lab results 12/27/22 Range/Units 09:55 RBC 4.41 L (4.70-6.10) M/uL MPV 9.2 L (9.4-12.4) fL Neut # (Auto) 6.65 H (1.40-6.50) K/uL Jennings # (Auto) 1.01 H (0.11-0.59) K/uL BUN/Creatinine Ratio 20.9 H (10-20) Diagnostic Findings Chest X-Ray 12/27/22 08:42 XR chest 1V portable HISTORY: Chest pain, nonspecific COMPARISON: Chest 12/14/2022. FINDINGS: No pneumothorax. No pleural effusions. The lungs are clear. The heart is normal in size. Cervical spinal fusion hardware is partially visualized. No acute fractures. A right coronary artery stent is noted. Mild emphysema. IMPRESSION: No significant change compared to the prior study. No acute process. ACT 112: Negative or not required by law. Electronically signed by: Sanjay Frye M.D. 12/27/2022 10:17 AM Code Status & VTE Plan Code Status Full code VTE Prophylaxis Plan VTE Prophylaxis will be ordered: Yes Supervising Physician Co-Signing Physician Notes Patient seen and examined, chart reviewed, case discussed with Sanjay Coats PA-C and I agree with the assessment and plan as above except as otherwise noted Labs and images reviewed Arnav is a 72-year-old male patient who requires ASL to communicate due to deafness with a history of CAD and stent placement, hyperlipidemia, hypertension, MD, psoriasis, anxiety/depression who presented with 10/10 burning chest pain which awoke him from sleep. He has a distant history of MD, but no heart failure. Pain this morning with squeezing without radiation down the arms or into the neck. Patient is a former smoker.Does have a history of PCI with bare-metal stent and following with cardiology at [facility]. Patient reports he is not on antiplatelet agent; he was on this and was recommended to be continued as recently as his last PCP visit 12/18/2022. Due to underlying coronary disease and stent do recommend he continue aspirin 81 mg daily. Hs troponin is negative x2 despite ongoing pain for more than 2 hours improving from 10/10; lower suspicion for ACS. EKG is with sinus bradycardia, inferior T wave inversions are present. On reassessment his pain is predominantly epigastric not in the sternum/chest without radiation. Suspect this is GERD we will continue PPI/H2 therapy. He has no hyperbilirubinemia or transaminitis suggestive of biliary/liver pathology. Did receive GI cocktail with clinical improvement. Patient reports he stopped taking aspirin after his last PCP visit. On review looks like he was instructed to stop taking meloxicam may have had some confusion as it is noted to continue aspirin on that note. Given his risk of cardiac disease and history of stenting, will resume aspirin monotherapy. He did receive a full dose aspirin on admission today. Lungs are clear and heart rate is regular slightly bradycardic at bedside. No reproducible chest pain on palpation, patient pain is predominantly epigastric [facility] Care Time/CCT Total # of Minutes Spent Total Time Spent with Patient: Total time spent is greater than 50% in coordination of care (as documented) at patient's floor/unit and/or counseling patient: Coding [place] [address] INT INP/OBS CARE 3/75MIN Patient Type Established Medical Decision Making High Complexity Diagnoses Chest pain R07.9 Essential hypertension I10 Hypertension type: essential hypertension Deafness H91.90 Cerebral palsy, unspecified type G80.9 Cerebral palsy type: unspecified type Cervicalgia M54.2 History of myocardial infarction I25.2 Pure hypercholesterolemia E78.00; E78.0 Hyperlipidemia type: pure hypercholesterolemia GERD (gastroesophageal reflux disease) K21.9 (2) Hypertension Hypertension type: essential hypertension Qualified Code(s): I10 - Essential (primary) hypertension (4) Cerebral palsy Cerebral palsy type: unspecified type Qualified Code(s): G80.9 - Cerebral palsy, unspecified (7) Hyperlipidemia Hyperlipidemia type: pure hypercholesterolemia Qualified Code(s): E78.00 - Pure hypercholesterolemia, unspecified; E78.0 - Pure hypercholesterolemia
[2022-12-27] MEDS ORDERED: FAMOTIDINE 20 MG TAB PO ONE (12:52)
[2022-12-27] MEDS ORDERED: RANOLAZINE 500 MG ER TAB PO STA (12:52)
[2022-12-27] MEDS ORDERED: NALOXONE HCL 0.4 MG/1 ML VIAL/CARP IV PRN (12:58)
[2022-12-27] MEDS ORDERED: ACETAMINOPHEN 325 MG TAB PO PRN (15:33)
[2022-12-27] MEDS ORDERED: TRIAMCINOLONE ACET 0.1% CR 15 GM TUBE TOP PRN (15:33)
[2022-12-27] MEDS ORDERED: oxyBUTYnin chloride 5 MG TAB PO PRN (15:33)
[2022-12-27] MEDS ORDERED: NITROGLYCERIN SL 0.4 MG/TAB TAB SL PRN (15:33)
[2022-12-27] MEDS ORDERED: LIDOCAINE 5% 1 PATCH TD PRN (15:33)
[2022-12-27] MEDS ORDERED: ENOXAPARIN INJ 40 MG/0.4 ML SYR SQ SCH (19:00)
[2022-12-27] MEDS ORDERED: ATORVASTATIN 40 MG TAB PO SCH (21:00)
[2022-12-27] MEDS: oxyCODONE HCL IR 5 MG TAB (IMMEDIATE RELEASE) PO PRN (21:47)
[2022-12-27] MEDS: BACLOFEN 10 MG TAB PO SCH (21:47)
[2022-12-27] MEDS: RANOLAZINE 500 MG ER TAB PO SCH (21:48)
--- NOTE | 2022-12-28 06:12 | Electrocardiogram Report ---
Test Reason : Blood Pressure : / mmHG Vent. Rate : 047 BPM Atrial Rate : 047 BPM P-R Int : 186 ms QRS Dur : 102 ms QT Int : 478 ms P-R-T Axes : 077 008 014 degrees QTc Int : 423 ms Sinus bradycardia Minimal voltage criteria for LVH, may be normal variant ( [place] product ) Septal infarct , age undetermined Abnormal ECG When compared with ECG of 03-APR-2017 07:34, Septal infarct is now Present Inverted T waves have replaced nonspecific T wave abnormality in Inferior leads T wave amplitude has decreased in Anterior leads Confirmed by Yash Otero ([id number]) on 12/28/2022 6:12:24 AM Referred By: Confirmed By:Yash Otero
[2022-12-28 08:11] LABS: Basophils # (auto) 0.08 K/uL (0.00-0.20); Basophils % (auto) 0.8 %; Eosinophils # (auto) 0.13 K/uL (0.00-0.50); Eosinophils % (auto) 1.4 %; Hematocrit (blood only) 39.1 % (42.0-52.0); Hemoglobin 13.4 g/dl (14.0-18.0); Immature Granulocytes # (auto) 0.13 K/uL (0.01-0.20); Immature Granulocytes % (auto) 1.4 %; Lymphocytes # (auto) 2.36 K/uL (1.20-3.40); Lymphocytes % (auto) 24.6 %; Mean Corpuscular Hemoglobin 31.8 pg (25.0-34.0); Mean Corpuscular Hgb Conc 34.3 g/dL (32.0-36.0); Mean Corpuscular Volume 92.7 fL (80.0-100.0); Mean Platelet Volume 9.5 fL (9.4-12.4); Monocytes # (auto) 0.82 K/uL (0.11-0.59); Monocytes % (auto) 8.6 %; Neutrophils # (auto) 6.06 K/uL (1.40-6.50); Neutrophils % (auto) 63.2 %; Platelet Count 330 K/uL (130-400); RDW Coefficient of Variation 12.3 % (11.5-14.5); RDW Standard Deviation 42.5 fL (36.4-46.3); Red Blood Count 4.22 M/uL (4.70-6.10); White Blood Count 9.58 K/ul (4.8-10.8)
[2022-12-28 08:35] LABS: Calcium 8.9 mg/dl (8.6-10.3); Magnesium 2.4 mg/dl (1.7-2.4); Potassium 4.4 mmol/L (3.5-5.1)
[2022-12-28 08:41] LABS: BUN Creatinine Ratio 19.8 (10-20); Creatinine Clr Calc Pharmacy 56.6 ml/min; Est GFR (African American) 86.9 ml/min
[2022-12-28] MEDS ORDERED: ASPIRIN 81 MG ECTAB PO SCH (09:00)
[2022-12-28] MEDS ORDERED: FAMOTIDINE 20 MG TAB PO SCH (09:00)
[2022-12-28] MEDS ORDERED: DULoxetine HCL 30 MG CAP PO SCH (09:00)
[2022-12-28] MEDS ORDERED: PANTOprazole 40 MG TAB PO SCH (09:00)
[2022-12-28] MEDS ORDERED: POLYETHYLENE (MIRALAX) 17 GM PACK PO SCH (09:00)
[2022-12-28] MEDS: oxyCODONE HCL IR 5 MG TAB (IMMEDIATE RELEASE) PO PRN (09:19)
[2022-12-28] MEDS: BACLOFEN 10 MG TAB PO SCH (09:20)
[2022-12-28] MEDS: RANOLAZINE 500 MG ER TAB PO SCH (09:22)
[2022-12-28] MEDS ORDERED: PANTOprazole 40 MG in SYRINGE 0 ML IV SCH (11:00)
--- NOTE | 2022-12-28 13:02 | Electrocardiogram Report ---
Test Reason : Blood Pressure : / mmHG Vent. Rate : 045 BPM Atrial Rate : 045 BPM P-R Int : 210 ms QRS Dur : 124 ms QT Int : 486 ms P-R-T Axes : 067 022 048 degrees QTc Int : 420 ms Sinus bradycardia with 1st degree A-V block Left ventricular hypertrophy with QRS widening Possible Old Inferior infarct Abnormal ECG When compared with ECG of 27-DEC-2022 08:39, QRS duration has increased T-wave inversion in Inferior leads no longer present Confirmed by Eliseo Escalante ([id number]) on 12/28/2022 1:01:43 PM Referred By: REFERRED SELF Confirmed By:Eliseo Escalante
--- NOTE | 2022-12-28 13:30 | Discharge Summary ---
Date of Service December 28, 2022 Admission HPI Per Admitting Provider Arnav is a 72-year-old male with PMH of deafness (uses sign language to communicate), recurrent falls, cerebral palsy, CAD s/p stent placement with last in 2007, HLD, HTN, PR, psoriasis, anxiety, and depression. He presented for burning chest pain 11/24 on the morning of 12/27 at 0500. The chest pain woke him from sleep. History was obtained using ALS services, with additional history from the patient's friend (Sowmya) who is at the bedside. Hx of PR in 2007 with 2 stents placed. Patient recently admitted to [facility] for falls. No falls since discharge, per patient. He describes the chest pain as "squeezing" substernal chest pain. He denies radiation to the left arm or back. He endorses left neck pain which has been ongoing. He takes oxycodone 5 mg twice daily for the pain, as well as Tylenol. Patient reports that he quit smoking tobacco cigarettes 4 months ago; used to smoke 1 pack every 3 days. He reports that his BP medications were stopped outpatient on 12/24. Despite having stents, he is not on any blood thinners or antiplatelets. He did not take his morning medications. Hypertensive at 170/98 on arrival, and bradycardic at 45 bpm. ED course: Morphine sulfate 4 mg IV Zofran 4 mg IV Aspirin 324 mg p.o. Maalox 15 mL p.o. ROS: Patient endorses substernal chest pain, abdominal pain (which he attributes to SQ shots), and some diarrhea. Patient denies fevers, MENEZES, pleuritic CP, cough, hemoptysis, SOB, N/V, blood in stool or urine, or numbness/tingling in legs. Principal Diagnosis Noncardiac chest pain, sinus bradycardia Discharge Exam General-alert and oriented x3, no fevers, no chills HEENT-head atraumatic and normocephalic, pupils equal and reactive to light, extraocular muscles intact Neck-no lymphadenopathy or thyromegaly, trachea midline Chest-clear to auscultation percussion. No rales wheezing or rhonchi Cardiac-mildly bradycardic regular rate and rhythm, normal S1 and S2 Abdomen-normal bowel sounds, nontender, no hepatosplenomegaly Extremities-no cyanosis, clubbing, or edema Neuro-cranial nerves II through XII intact, motor and sensory function within normal limits, strength symmetrical, no focal deficits Psych-normal affect, normal mood Discharge Data Allergies Allergy/AdvReac Type Severity Reaction Status Date / Time No Known Allergies Allergy Verified 12/24/22 09:45 Consultations 12/27/22 11:52 ED Decision to Admit Stat Hospital Course (1) Chest pain: Appears to be noncardiac. Serial troponins negative. Repeat EKG reveals no acute changes. (2) Hypertension: Elevated on arrival. Improved. Continue current medical management. 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 Fall precautions (5) Cervicalgia: Oxycodone 5 mg p.o. q4h as needed for left neck pain (6) History of myocardial infarction: In 2007 w/ stents placed x2. Follows with Dr. Allen. Per patient, he is not on any antiplatelet or anticoagulation therapy. We will continue current medical manage (7) Hyperlipidemia: Stable. Continue atorvastatin (8) GERD (gastroesophageal reflux disease): Stable. Continue pantoprazole, famotidine Plan Home today, December 28 Total Time Total Time Spent Total Time Spent (In Minutes): 45 minutes Discharge Plan Discharge Items Patient Disposition: Home - Self-Care Reason For Visit: CHEST PAIN Discharge Diagnosis: Noncardiac chest pain Activity: Resume your previous activity Non-emergency contact: Primary Care Provider Call non-emergency contact if: your symptoms worsen Follow-up/Referrals: Sumanth Etienne CRNP [Primary Care Provider] - 12/30/22 2:00 pm (THIS APPOINTMENT WILL BE WITH FAY MACK) Diet: Regular and Heart Healthy Addtl Attending Provider Instructions: All medications remain the same Pending Studies at Discharge: No Stand-Alone Forms: [facility] [employer], Smoking Cessation Medications and DC Order Prescriptions: New aspirin 81 mg Tablet,Delayed Release (Dr/Ec) 81 mg PO QAM Qty: 0 0RF nitroglycerin [Nitrostat] 0.4 mg Tablet, Sublingual 0.4 mg sublingual Q5M PRNQty: 25 0RF Continued acetaminophen [Tylenol Extra Strength] 500 mg tablet 500 mg PO HS calcium carbonate [Tums E-X] 300 mg (750 mg) tablet,chewable 300 mg PO QID PRN (Reason: Acid Reflux) calcipotriene-betamethasone 0.005-0.064 % ointment 1 applic topical DAILY 28 Days Qty: 60 3RF atorvastatin 80 mg tablet 80 mg PO HS Qty: 90 3RF sildenafil [Viagra] 50 mg tablet 50 mg PO DAILY PRN (Reason: Erectile Dysfunction) Qty: 30 5RF (DME) Wheeled Walker Misc See Rx Instructions .Route Qty: 1 0RF Rx Instructions: 4 wheeled walker w/ seat & hand brakes duloxetine 30 mg capsule,delayed release(DR/EC) 30 mg PO DAILY Qty: 90 3RF famotidine 20 mg tablet 20 mg PO DAILY Qty: 30 2RF pantoprazole 40 mg tablet,delayed release (DR/EC) 40 mg PO DAILY Qty: 30 1RF [id number] serr [Osteo Bi-Flex (5-Loxin)] 1,500-400-100 mg-unit-mg tablet 1 tab PO DAILY Rx Instructions: give after food/meal ranolazine 500 mg tablet extended release 12 hr 500 mg PO BID Rx Instructions: 9-11 cyanocobalamin (vitamin B-12) [Vitamin B-12] 1,000 mcg Tablet 1,000 mcg PO QAM cholecalciferol (vitamin D3) [Vitamin D3] 50 mcg (2,000 unit) Tablet 2,000 unit PO QAM PreserVision AREDS [id number] Capsule 1 cap PO QAM coQ10 (ubiquinol) 200 mg Capsule 200 mg PO QAM Triflex 1 cap PO QAM triamcinolone acetonide 0.1 % cream 0 applic topical BID PRN (Reason: itching) Rx Instructions: no active script with pharmacy nitroglycerin [Nitrostat] 0.4 mg tablet, sublingual 0 mg SL Q5M PRN (Reason: Chest Pain) Rx Instructions: no record lidocaine 5 % adhesive patch,medicated 1 patch TOP DAILY PRN (Reason: pain) Qty: 15 0RF Rx Instructions: leave on most painful area for 12 hrs multivitamin Tablet 1 tab PO DAILY baclofen 10 mg tablet 10 mg PO BID Rx Instructions: TAKE ONE TABLET BY MOUTH TWICE A DAY oxybutynin chloride 5 mg tablet 5 mg PO DAILY PRN (Reason: Bladder Spasms) Rx Instructions: TAKE ONE TABLET BY MOUTH DAILY NEEDED FOR BLADDER SPASMS polyethylene glycol 3350 [Miralax] 17 gram/dose powder 17 g PO DAILY Qty: 510 0RF oxycodone 5 mg tablet 5 mg PO Q4H PRN (Reason: pain) Qty: 30 0RF Discharge Orders: Discharge Order (Routine); Ordered 12/28/22 Ordered By: Arnav Carcamo Admission Data Admit Date/Time: 12/27/22 12:51 Attending Provider: Arnav Carcamo Admit Provider: Zaheer Garces Primary Care Provider: Sumanth Etienne Other Providers: Zaheer Garces Coding Level of Care Code 08711 INP/OBS DISCH >30 MIN Diagnoses Chest pain R07.9 Essential hypertension I10 Hypertension type: essential hypertension Deafness H91.90 Cerebral palsy, unspecified type G80.9 Cerebral palsy type: unspecified type Cervicalgia M54.2 History of myocardial infarction I25.2 Pure hypercholesterolemia E78.00; E78.0 Hyperlipidemia type: pure hypercholesterolemia GERD (gastroesophageal reflux disease) K21.9
== END 2022-12-28 14:50 | disposition home or self-care (01) | DRG 313 ==
LOC: ED 08:26 → EDINP 12:51 → SUATTDRO 12:51 → INTOOBSV 12:51 → 2N 15:25